=== PATIENT | female | born 1940 | race Caucasian/White ===

== ENCOUNTER 2017-04-22 19:32 | Inpatient (IN) | payer MEDICARE, OTHER ==
[~2017-04-22] VITALS: Ht 157.5 cm; Wt 66.0 kg
[2017-04-22] MEDS ORDERED: IV NORMAL SALINE 1000ML BAG 1,000 ML IV ONE (20:00)
[2017-04-22 20:16] LABS: BILIRUBIN,URINE NEGATIVE (NEG); GLUCOSE,URINE NEGATIVE (NEG); NITRITE,URINE NEGATIVE (NEG); PH,URINE 5.5; PROTEIN,URINE NEGATIVE (NEG-TRACE); UROBILINOGEN,URINE 0.2 mg/dL (0.2 mg/dL)
--- NOTE | 2017-04-22 20:18 | PHYS DOC ---
Past Medical History Past Medical History: Cancer, Diabetes-Type II, ND Past Surgical History: Cholecystectomy, Hysterectomy Alcohol Use: None Drug Use: None Adult General Chief Complaint Chief Complaint: ALTERED MENTAL STATUS HPI HPI Patient is a 76 year old female who presents with reported altered mental status. The patient was found in a neighborhood wandering and taking branches off of trees when bystanders reported the patient to EMS. On their arrival, they stated that the patient seem altered and was unable to tell them where she was coming from. On my evaluation, the patient is currently identifying the correct day, month, and year. Patient states that she does not have any complaints at this time but is unable to recall previous events prior to arrival. Patient does not have any available past medical history at this time. Patient states that she follows with a Dr. Mcneil in [place], [place]. The patient states that she lives at home with a friend. When asked if we would be able to contact this person, she states "I don't know." When asked why, the patient states that she does not know if the patient has a phone. Review of Systems Review of Systems Constitutional: Denies fever or chills [] Eyes: Denies change in visual acuity, redness, or eye pain [] HENT: Denies nasal congestion or sore throat [] Respiratory: Denies cough or shortness of breath [] Cardiovascular: Denies chest pain or edema [] GI: Denies abdominal pain, nausea, vomiting, bloody stools or diarrhea [] : Denies dysuria or hematuria [] Musculoskeletal: Denies back pain or joint pain [] Integument: Denies rash or skin lesions [] Neurologic: Denies headache, focal weakness or sensory changes [] Current Medications Current Medications Current Medications Medications (Trade) Dose Ordered Sig/[facility] Start Time Stop Time Status Last Admin Dose Admin Aspirin (Cathy Aspirin) 325 mg 1X ONCE 04/22/17 22:00 04/22/17 22:01 Ceftriaxone Sodium 50 ml @ 100 mls/hr 1X ONCE 04/22/17 21:00 04/22/17 21:29 DC 04/22/17 21:00 100 MLS/HR Sodium Chloride 1,000 ml @ 1,000 mls/hr 1X ONCE 04/22/17 20:00 04/22/17 20:59 DC 04/22/17 20:00 1,000 MLS/HR Allergies Allergies Allergies Coded Allergies Type Severity Reaction Last Updated Verified Unable to Assess 04/22/17 No Physical Exam Physical Exam Constitutional: Alert, disheveled appearance, afebrile, no acute distress. [] HENT: Normocephalic, atraumatic, bilateral external ears normal, oropharynx moist, no oral exudates, nose normal. [] Eyes: PERRLA, EOMI, conjunctiva normal, no discharge. [] Neck: Normal range of motion, no tenderness, supple, no stridor. [] Cardiovascular:Heart rate regular rhythm, no murmur [] Lungs & Thorax: Bilateral breath sounds clear to auscultation [] Abdomen: Bowel sounds normal, soft, no tenderness, no masses, no pulsatile masses. [] Skin: Warm, dry, no erythema, no rash. [] Back: No tenderness, no CVA tenderness. [] Extremities: No tenderness, no cyanosis, no clubbing, ROM intact, no edema. [] Neurologic: Alert and oriented X 3, normal motor function, normal sensory function, no focal deficits noted. [] Current Patient Data Vital Signs Vital Signs Date Time Temp Pulse Resp B/P (MAP) Pulse Ox O2 Delivery O2 Flow Rate FiO2 04/22/17 20:42 72 18 150/71 (97) 97 Room Air 04/22/17 19:35 97.7 97.7 Lab Values Laboratory Tests Test 04/22/17 19:55 04/22/17 20:14 04/22/17 20:40 Urine Collection Type Unknown Urine Color Yellow Urine Clarity Clear Urine pH 5.5 Urine Specific [place] <=1.005 Urine Protein Negative mg/dL (NEG-TRACE) Urine Glucose (UA) Negative mg/dL (NEG) Urine Ketones (Stick) Negative mg/dL (NEG) Urine Blood Negative (NEG) Urine Nitrite Negative (NEG) Urine Bilirubin Negative (NEG) Urine Urobilinogen Dipstick 0.2 mg/dL (0.2 mg/dL) Urine Leukocyte Esterase Moderate (NEG) Urine RBC 3-5 /HPF (0-2) Urine WBC Tntc /HPF (0-4) Urine Squamous Epithelial Cells Mod /LPF Urine Bacteria Few /HPF (0-FEW) Urine Opiates Screen Neg (NEG) Urine Methadone Screen Neg (NEG) Urine Barbiturates Neg (NEG) Urine Phencyclidine Screen Neg (NEG) Urine Amphetamine/Methamphetamine Neg (NEG) Urine Benzodiazepines Screen Neg (NEG) Urine Cocaine Screen Neg (NEG) Urine Cannabinoids Screen Neg (NEG) Urine Ethyl Alcohol Neg (NEG) White Blood Count 12.1 x10^3/uL (4.0-11.0) H Red Blood Count 5.39 x10^6/uL (3.50-5.40) Hemoglobin 15.2 g/dL (12.0-15.5) Hematocrit 46.6 % (36.0-47.0) Mean Corpuscular Volume 87 fL (79-100) Mean Corpuscular Hemoglobin 28 pg (25-35) Mean Corpuscular Hemoglobin Concent 33 g/dL (31-37) Red Cell Distribution Width 18.5 % (11.5-14.5) H Platelet Count 964 x10^3/uL (140-400) *H Neutrophils (%) (Auto) 77 % (31-73) H Lymphocytes (%) (Auto) 14 % (24-48) L Monocytes (%) (Auto) 6 % (0-9) Eosinophils (%) (Auto) 2 % (0-3) Basophils (%) (Auto) 1 % (0-3) Neutrophils # (Auto) 9.3 x10^3uL (1.8-7.7) H Lymphocytes # (Auto) 1.7 x10^3/uL (1.0-4.8) Monocytes # (Auto) 0.7 x10^3/uL (0.0-1.1) Eosinophils # (Auto) 0.2 x10^3/uL (0.0-0.7) Basophils # (Auto) 0.1 x10^3/uL (0.0-0.2) Platelet Estimate Increased (ADEQUATE) Anisocytosis Slight Sodium Level 128 mmol/L (136-145) L Potassium Level 3.6 mmol/L (3.5-5.1) Chloride Level 91 mmol/L (98-107) L Carbon Dioxide Level 25 mmol/L (21-32) Anion Gap 12 (6-14) Blood Urea Nitrogen 7 mg/dL (7-20) Creatinine 0.8 mg/dL (0.6-1.0) Estimated GFR (Cockcroft-Gault) 69.7 BUN/Creatinine Ratio 9 (6-20) Glucose Level 144 mg/dL (70-99) H Calcium Level 8.7 mg/dL (8.5-10.1) Magnesium Level 1.4 mg/dL (1.8-2.4) L Total Bilirubin 0.9 mg/dL (0.2-1.0) Aspartate Amino Transferase (AST) 21 U/L (15-37) Alanine Aminotransferase (ALT) 21 U/L (14-59) Alkaline Phosphatase 112 U/L (46-116) Creatine Kinase 127 U/L (26-192) Creatine Kinase MB (Mass) 3.0 ng/mL (0.0-3.6) Creatine Kinase MB Relative Index 2.4 % (0-4) Troponin I Quantitative 0.184 ng/mL (0.000-0.055) Total Protein 7.3 g/dL (6.4-8.2) Albumin 3.5 g/dL (3.4-5.0) Albumin/Globulin Ratio 0.9 (1.0-1.7) L Ethyl Alcohol Level < 10 mg/dL (0-10) Prothrombin Time 13.3 SEC (11.7-14.0) Prothrombin Time INR 1.1 (0.8-1.1) PTT 33 SEC (24-38) Laboratory Tests 04/22/17 20:14 Laboratory Tests 04/22/17 20:14 EKG EKG Interpreted by me: Heart rate 75, sinus rhythm, normal intervals, normal axis, no acute ST/T-wave abnormalities present [] Radiology/Procedures Radiology/Procedures [facility] [address] [place] [address] IMAGING REPORT Signed PATIENT: JAD BROOKS ACCOUNT: [id number] : 1940 LOCATION: ER AGE: 76 SEX: F EXAM STATUS: REG ER ORD. PHYSICIAN: ANGI RAY MD REASON: altered mental status PROCEDURE: CT HEAD WO CONTRAST CT HEAD WO CONTRAST History: Altered mental status Comparison: None. Technique: Noncontrast [address] images were acquired from the skull base to the vertex. Exposure: One or more of the following individualized dose reduction techniques were utilized for this examination: 1. Automated exposure control 2. Adjustment of the mA and/or kV according to patient size 3. Use of iterative reconstruction technique. Findings: No acute extra-axial or parenchymal hemorrhage is identified. There is no significant intra-axial mass effect, midline shift, or extra-axial fluid collection. The bo-white differentiation of the major vascular territories is preserved. There is mild ill-defined low density of the supratentorial white matter. The ventricles, sulci, and cisterns are within normal limits in size and configuration. The mastoid air cells and the visualized paranasal sinuses are aerated. No acute calvarial abnormality is identified. There is atherosclerotic calcification of the carotid siphons bilaterally. Impression: 1. No acute intracranial abnormality is identified. If there is concern for evolving or acute ischemia, followup CT or MRI could be beneficial. Mild ill-defined low density of the supratentorial matter is nonspecific, may be due to chronic microvascular ischemic disease. Electronically signed by: Janice Kirby MD (04/22/2017 9:33 PM) DICTATED and SIGNED BY: JANICE KIRBY MD DATE: 04/22/172131 CC: ANGI RAY MD; UNKNOWN PCP NAME ~ One view AP chest x-ray interpreted by me: No infiltrate, no effusions, normal cardiac silhouette [] Course & Med Decision Making Course & Med Decision Making Pertinent Labs and Imaging studies reviewed. (See chart for details) Patient found to have evidence of urinary tract infection and was started on IV Rocephin. Due to patient's cell phone, we were able to get in contact with patient's family. The patient's son came to the emergency department. He explained that the patient has history of dementia and recently moved in with him and his over the weekend. He stated that he had not been able tenderness the patient to neighbors and thus they did not recognize the patient and called EMS. The patient was also noted to have evidence of an elevated troponin level during her workup. The significance of this is unclear at this time, however patient will need to be admitted for repeat troponin levels to ensure no evidence of NSTEMI. Patient be continued on IV Rocephin for treatment of urinary tract infection. I spoke with Dr. Moore who accepted care patient in hospital. Dragon Disclaimer Dragon Disclaimer This electronic medical record was generated, in whole or in part, using a voice recognition dictation system. Departure Departure Impression: Primary Impression: UTI (urinary tract infection) Additional Impressions: Altered mental state Elevated troponin Hyponatremia Dementia Thrombocytosis Disposition: ADMITTED INPATIENT Admitting Physician: Yazmin Moore Condition: GUARDED Referrals: UNKNOWN PCP NAME (PCP) Problem Qualifiers Primary Impression: UTI (urinary tract infection) Urinary tract infection type: site unspecified Hematuria presence: without hematuria Qualified Codes: N39.0 - Urinary tract infection, site not specified Additional Impressions: Altered mental state Altered mental status type: unspecified Qualified Codes: R41.82 - Altered mental status, unspecified Dementia Dementia type: unspecified type Dementia behavioral disturbance: with behavioral disturbance Qualified Codes: F03.91 - Unspecified dementia with behavioral disturbance ANGI RAY MD April 22, 2017 20:18
[2017-04-22 20:23] LABS: BARBITURATES NEG (NEG); BENZODIAZEPINES NEG (NEG); CANNABINOIDS NEG (NEG); COCAINE NEG (NEG); METHADONE NEG (NEG); OPIATES NEG (NEG); PHENCYCLIDINE NEG (NEG)
[2017-04-22 20:25] LABS: WBC,URINE TNTC /HPF (0-4)
[2017-04-22 20:26] LABS: BACTERIA,URINE FEW /HPF (0-FEW); SQUAMOUS EPITHELIAL CELL,UR MOD /LPF
[2017-04-22 20:29] LABS: BASO # 0.1 x10^3/uL (0.0-0.2); BASO % 1 % (0-3); EOS % 2 % (0-3); HEMATOCRIT 46.6 % (36.0-47.0); HEMOGLOBIN 15.2 g/dL (12.0-15.5); LYMPH # 1.7 x10^3/uL (1.0-4.8); LYMPH % 14 % (24-48); MEAN CORPUSCULAR HEMOGLOBIN 28 pg (25-35); MEAN CORPUSCULAR HGB CONC 33 g/dL (31-37); MEAN CORPUSCULAR VOLUME 87 fL (79-100); MONO % 6 % (0-9); NEUT % 77 % (31-73); RED BLOOD COUNT 5.39 x10^6/uL (3.50-5.40); RED CELL DISTRIBUTION WIDTH 18.5 % (11.5-14.5); WHITE BLOOD COUNT 12.1 x10^3/uL (4.0-11.0)
[2017-04-22 20:35] LABS: PLATELET COUNT 964 x10^3/uL (140-400)
[2017-04-22 20:44] LABS: ANISOCYTOSIS SLIGHT; PLT ESTIMATE INCREASED (ADEQUATE)
[2017-04-22 20:45] LABS: CALCIUM 8.7 mg/dL (8.5-10.1); CREATININE 0.8 mg/dL (0.6-1.0); GFR 69.7; POTASSIUM 3.6 mmol/L (3.5-5.1)
[2017-04-22 20:51] LABS: ALBUMIN 3.5 g/dL (3.4-5.0); ALBUMIN/GLOBULIN RATIO 0.9 (1.0-1.7); MAGNESIUM 1.4 mg/dL (1.8-2.4); TOTAL BILIRUBIN 0.9 mg/dL (0.2-1.0); TOTAL PROTEIN 7.3 g/dL (6.4-8.2)
[2017-04-22 20:57] LABS: INR 1.1 (0.8-1.1); PROTHROMBIN TIME PATIENT 13.3 SEC (11.7-14.0)
--- NOTE | 2017-04-22 21:37 | RAD ---
CT HEAD WO CONTRAST History: Altered mental status Comparison: None. Technique: Noncontrast [address] images were acquired from the skull base to the vertex. Exposure: One or more of the following individualized dose reduction techniques were utilized for this examination: 1. Automated exposure control 2. Adjustment of the mA and/or kV according to patient size 3. Use of iterative reconstruction technique. Findings: No acute extra-axial or parenchymal hemorrhage is identified. There is no significant intra-axial mass effect, midline shift, or extra-axial fluid collection. The bo-white differentiation of the major vascular territories is preserved. There is mild ill-defined low density of the supratentorial white matter. The ventricles, sulci, and cisterns are within normal limits in size and configuration. The mastoid air cells and the visualized paranasal sinuses are aerated. No acute calvarial abnormality is identified. There is atherosclerotic calcification of the carotid siphons bilaterally. Impression: 1. No acute intracranial abnormality is identified. If there is concern for evolving or acute ischemia, followup CT or MRI could be beneficial. Mild ill-defined low density of the supratentorial matter is nonspecific, may be due to chronic microvascular ischemic disease. Electronically signed by: Adiel Kirby MD (04/22/2017 9:33 PM)
[2017-04-22] MEDS ORDERED: ACETAMINOPHEN 325 MG TABLET. PO PRN (22:00)
[2017-04-22] MEDS ORDERED: ONDANSETRON PF 4 MG/2 ML VIAL. IV PRN (22:00)
[2017-04-22] MEDS ORDERED: ASPIRIN 325 MG TABLET PO ONE (22:00)
[2017-04-22] MEDS: IV NORMAL SALINE 1000ML BAG 1,000 ML IV SCH (22:10)
--- NOTE | 2017-04-22 22:55 | ACF ---
Admission Forms Criteria URINARY COMPLICATIONS Clinical Indications for Inpatient Care (Place 'X' for any and all applicable criteria): Ongoing inpatient care may be indicated for urinary complications with ANY ONE of the following: [X ]I. Urinary tract infection requiring inpatient care as indicated by ANY ONE of the following(8)(19)(20): [ ]a) Severe symptoms (eg, high fever, severe pain) [ ]b) Vomiting or dehydration requiring ongoing inpatient care [X ]c) IV antibiotic needs that cannot be managed at lower level of care [ ]d) Hemodynamic instability [ ]e) Obstruction of collecting system by stone or tumor [ ]II. Urinary retention requiring drainage or surgery (3)(4)(5)(17)(18) [ ]III. Renal failure (Use Renal Failure Criteria for further information.) [ ]IV. Oliguria(30) [ ]V. Post obstructive diuresis requiring close monitoring of urine output and intravenous compensation for excessive fluid losses(33) Extended stay beyond goal length of stay for primary condition may be needed until ALL of the following are present(3)(4)(5)(8): [ ]a) Renal function (creatinine) at baseline, or daily decreases in creatinine consistent with renal function return [ ]b) Voiding adequately or with urinary catheter or percutaneous suprapubic tube and management regimen in place that is performable at lower level of care. [ ]c) Urine output adequate [ ]d) Fever absent or resolving [ ]e) Infection absent or treatable at next level of care The original [email or web address] content created by [email or web address] has been revised. The portions of the content which have been revised are identified through the use of italic text or in bold, and [facility] has neither reviewed nor approved the modified material. All other unmodified content is copyright to[facility] Please see references footnoted in the original to[facility] edition 2016 Admission Criteria Met?: Yes FREDA CALLAWAY April 22, 2017 22:55
[2017-04-22 23:10] VITALS: BP 139/86
[2017-04-23] MEDS ORDERED: UNABLE MC (00:09)
[2017-04-23 02:10] VITALS: BP 127/78
[2017-04-23 05:02] LABS: BASO # 0.2 x10^3/uL (0.0-0.2); BASO % 1 % (0-3); EOS % 2 % (0-3); HEMATOCRIT 45.3 % (36.0-47.0); HEMOGLOBIN 14.7 g/dL (12.0-15.5); LYMPH # 1.9 x10^3/uL (1.0-4.8); LYMPH % 15 % (24-48); MEAN CORPUSCULAR HEMOGLOBIN 28 pg (25-35); MEAN CORPUSCULAR HGB CONC 33 g/dL (31-37); MEAN CORPUSCULAR VOLUME 86 fL (79-100); MONO % 8 % (0-9); NEUT % 74 % (31-73); RED BLOOD COUNT 5.29 x10^6/uL (3.50-5.40); RED CELL DISTRIBUTION WIDTH 18.8 % (11.5-14.5); WHITE BLOOD COUNT 12.1 x10^3/uL (4.0-11.0)
[2017-04-23 05:15] LABS: CALCIUM 8.6 mg/dL (8.5-10.1); CREATININE 0.7 mg/dL (0.6-1.0); GFR 81.4; POTASSIUM 4.9 mmol/L (3.5-5.1)
[2017-04-23 05:34] LABS: PLATELET COUNT 1035 x10^3/uL (140-400)
--- NOTE | 2017-04-23 06:18 | EKG ---
[facility] [address] [place] [address] Test Date: 2017-04-22 Test Time: 20:08:48 Pat Name: JAD BROOKS Department: Room: 252 Gender: F [employer]: : 1940 Requested By: ANGI RAY Order Number: [id number] Reading MD: Dolores Adam Measurements Intervals [place] Rate: 75 P: 54 SC: 142 QRS: 24 QRSD: 102 T: -35 QT: 398 QTc: 447 Interpretive Statements SINUS RHYTHM NORMAL EKG RI6.01 Unconfirmed report No previous ECG available for comparison Electronically Signed On 04-27-2017 14:22:12 CDT by Dolores Adam
--- NOTE | 2017-04-23 07:52 | RAD ---
Portable chest, 04/22/2017: History: Altered mental status The heart size is normal. There is calcific plaquing of the aorta. The pulmonary vascularity is normal. A calcified granuloma is present in the right base. No acute infiltrates are seen. There is no evidence of pleural fluid. Moderate spurring is present in the spine. IMPRESSION: No acute cardiopulmonary abnormality is detected.
[2017-04-23] MEDS: IV NORMAL SALINE 1000ML BAG 1,000 ML IV SCH ×2 (08:00→18:00)
[2017-04-23] MEDS ORDERED: HYDR500C16 PO ×2 (08:11→08:16)
[2017-04-23] MEDS ORDERED: METF500T9 PO (08:17)
[2017-04-23] MEDS ORDERED: BISO1TAB4 PO (08:18)
[2017-04-23] MEDS ORDERED: GLIP5TAB10 PO (08:19)
[2017-04-23] MEDS ORDERED: GLIP10TA13 PO (08:19)
[2017-04-23] MEDS ORDERED: CLOP75TA PO (08:19)
[2017-04-23] MEDS ORDERED: LEVO100T5 PO (08:20)
[2017-04-23] MEDS ORDERED: DOCU100C5 PO (08:20)
--- NOTE | 2017-04-23 09:05 | PDOC2 ---
MAISHA LEYVA [employer] JUDGE 04/23/17 0905: CARDIAC CONSULT DATE OF CONSULT Date of Consult DATE: 04/23/17 TIME: 08:46 REASON FOR CONSULT Reason for Consult: elevated troponin REFERRING PHYSICIAN Referring Physician: Sandra SOURCE Source: Caregiver (son), Chart review, Patient HISTORY OF PRESENT ILLNESS HISTORY OF PRESENT ILLNESS This is a pleasant 76 yo female admitted for noted confusion. She is originally from [place], [place] and recently moved to her son's ([place]) Friday due to her dementia. Last night her son went to work and she was found by the bystanders in their neighbors yard wandering and confused. There was no complains of chest pain, SOA, palpitation and nausea at that time. Pt denies and son has not noticed any symptom changes except that she does have occasional confusion. I had a long discussion with her son and reported to me that she has CAD and stent placed >10 yrs and she has not seen a mirror painter for a while. He has not noted her with any cardiac symptoms but was worried about her speech with noted stuttering. No unilateral weakness, facial droop, visual or auditory disturbances. Her appetite has been poor lately but her hydration is adequate accdg to son. It is unclear how compliant she is with her medications but the son is monitoring this. Accdg to son she has been complaining of being cold more but no respiratory symptoms or noted fever. She was recently diagnosed with Alzheimers about a month ago but was not started on any aricept or namenda. She recently saw her PCP at [place], Dr. Mnceil. Presently she is AOx3, slightly restless and cooperative. No recent falls or injury, no VTE. PAST MEDICAL HISTORY Cardiovascular: CAD, HTN, GA, Hyperlipidemia Pulmonary: No pertinent hx CENTRAL NERVOUS SYSTEM: Dementia (Alzheimers) GI: Constipation, GERD Heme/Onc: Cancer (colon unknown for any surgery or chemo) Hepatobiliary: Other (thrombocytosis) Psych: Anxiety, Depression Musculoskeletal: low back pain (lumbar stenosis), Osteoarthritis Rheumatologic: No pertinent hx Infectious disease: No pertinent hx ENT: No pertinent hx Renal/: Urinary Incontinence Endocrine: Diabetes (2), Hypothyroidism Dermatology: No pertinent hx PAST SURGICAL HISTORY Past Surgical History: Cholecystectomy, Hysterectomy, Other (right leg surgery ; PCI/stent >10 yrs ago) FAMILY HISTORY Family History: Family History Unknown SOCIAL HISTORY Smoke: No ALCOHOL: none Drugs: None Lives: with Family CURRENT MEDICATIONS CURRENT MEDICATIONS Current Medications Medications (Trade) Dose Ordered Sig/Nuria Route PRN Reason Start Time Stop Time Status Last Admin Dose Admin Sodium Chloride 1,000 ml @ 1,000 mls/hr 1X ONCE IV 04/22/17 20:00 04/22/17 20:59 DC 04/22/17 20:00 Ceftriaxone Sodium 50 ml @ 100 mls/hr 1X ONCE IV 04/22/17 21:00 04/22/17 21:29 DC 04/22/17 21:00 Aspirin (Cathy Aspirin) 325 mg 1X ONCE PO 04/22/17 22:00 04/22/17 22:01 DC 04/22/17 22:10 Sodium Chloride 1,000 ml @ 100 mls/hr Q10H IV 04/22/17 22:00 04/23/17 21:59 04/22/17 22:10 ALLERGIES ALLERGIES: Coded Allergies: Penicillins (Verified Allergy, Unknown, 04/23/17) ROS Review of System 14 point ROS evaluated with pertinent positives noted per HPI PHYSICAL EXAM General: Alert, Oriented X3, Cooperative, No acute distress HEENT: Atraumatic, Mucous membr. moist/pink Lungs: Clear to auscultation, Normal air movement Heart: Regular rate (SR), Normal S1, Normal S2, Other (5/6 systolic murmur to MECHELLE border) Neuro: Normal speech, Sensation intact Psych/Mental Status: Mental status NL, Other (slightly restless) MUSCULOSKELETAL: Osteoarthritic changes both hands VITALS VITALS Vital Signs Date Time Temp Pulse Resp B/P (MAP) Pulse Ox O2 Delivery O2 Flow Rate FiO2 04/23/17 02:10 98.0 86 19 127/78 (94) 95 Room Air 98.0 LABS Lab: Laboratory Tests Test 04/22/17 19:55 04/22/17 20:14 04/22/17 20:40 04/23/17 03:50 Urine Collection Type Unknown Urine Color Yellow Urine Clarity Clear Urine pH 5.5 Urine Specific [place] <=1.005 Urine Protein Negative mg/dL (NEG-TRACE) Urine Glucose (UA) Negative mg/dL (NEG) Urine Ketones (Stick) Negative mg/dL (NEG) Urine Blood Negative (NEG) Urine Nitrite Negative (NEG) Urine Bilirubin Negative (NEG) Urine Urobilinogen Dipstick 0.2 mg/dL (0.2 mg/dL) Urine Leukocyte Esterase Moderate (NEG) Urine RBC 3-5 /HPF (0-2) Urine WBC Tntc /HPF (0-4) Urine Squamous Epithelial Cells Mod /LPF Urine Bacteria Few /HPF (0-FEW) Urine Opiates Screen Neg (NEG) Urine Methadone Screen Neg (NEG) Urine Barbiturates Neg (NEG) Urine Phencyclidine Screen Neg (NEG) Urine Amphetamine/Methamphetamine Neg (NEG) Urine Benzodiazepines Screen Neg (NEG) Urine Cocaine Screen Neg (NEG) Urine Cannabinoids Screen Neg (NEG) Urine Ethyl Alcohol Neg (NEG) White Blood Count 12.1 x10^3/uL (4.0-11.0) Red Blood Count 5.39 x10^6/uL (3.50-5.40) Hemoglobin 15.2 g/dL (12.0-15.5) Hematocrit 46.6 % (36.0-47.0) Mean Corpuscular Volume 87 fL (79-100) Mean Corpuscular Hemoglobin 28 pg (25-35) Mean Corpuscular Hemoglobin Concent 33 g/dL (31-37) Red Cell Distribution Width 18.5 % (11.5-14.5) Platelet Count 964 x10^3/uL (140-400) Neutrophils (%) (Auto) 77 % (31-73) Lymphocytes (%) (Auto) 14 % (24-48) Monocytes (%) (Auto) 6 % (0-9) Eosinophils (%) (Auto) 2 % (0-3) Basophils (%) (Auto) 1 % (0-3) Neutrophils # (Auto) 9.3 x10^3uL (1.8-7.7) Lymphocytes # (Auto) 1.7 x10^3/uL (1.0-4.8) Monocytes # (Auto) 0.7 x10^3/uL (0.0-1.1) Eosinophils # (Auto) 0.2 x10^3/uL (0.0-0.7) Basophils # (Auto) 0.1 x10^3/uL (0.0-0.2) Platelet Estimate Increased (ADEQUATE) Anisocytosis Slight Sodium Level 128 mmol/L (136-145) Potassium Level 3.6 mmol/L (3.5-5.1) Chloride Level 91 mmol/L (98-107) Carbon Dioxide Level 25 mmol/L (21-32) Anion Gap 12 (6-14) Blood Urea Nitrogen 7 mg/dL (7-20) Creatinine 0.8 mg/dL (0.6-1.0) Estimated GFR (Cockcroft-Gault) 69.7 BUN/Creatinine Ratio 9 (6-20) Glucose Level 144 mg/dL (70-99) Calcium Level 8.7 mg/dL (8.5-10.1) Magnesium Level 1.4 mg/dL (1.8-2.4) Total Bilirubin 0.9 mg/dL (0.2-1.0) Aspartate Amino Transf (AST/SGOT) 21 U/L (15-37) Alanine Aminotransferase (ALT/SGPT) 21 U/L (14-59) Alkaline Phosphatase 112 U/L (46-116) Creatine Kinase 127 U/L (26-192) Creatine Kinase MB (Mass) 3.0 ng/mL (0.0-3.6) Creatine Kinase MB Relative Index 2.4 % (0-4) Troponin I Quantitative 0.184 ng/mL (0.000-0.055) 1.263 ng/mL (0.000-0.055) Total Protein 7.3 g/dL (6.4-8.2) Albumin 3.5 g/dL (3.4-5.0) Albumin/Globulin Ratio 0.9 (1.0-1.7) Ethyl Alcohol Level < 10 mg/dL (0-10) Prothrombin Time 13.3 SEC (11.7-14.0) Prothromb Time International Ratio 1.1 (0.8-1.1) Activated Partial Thromboplast Time 33 SEC (24-38) Test 04/23/17 03:55 White Blood Count 12.1 x10^3/uL (4.0-11.0) Red Blood Count 5.29 x10^6/uL (3.50-5.40) Hemoglobin 14.7 g/dL (12.0-15.5) Hematocrit 45.3 % (36.0-47.0) Mean Corpuscular Volume 86 fL (79-100) Mean Corpuscular Hemoglobin 28 pg (25-35) Mean Corpuscular Hemoglobin Concent 33 g/dL (31-37) Red Cell Distribution Width 18.8 % (11.5-14.5) Platelet Count 1035 x10^3/uL (140-400) Neutrophils (%) (Auto) 74 % (31-73) Lymphocytes (%) (Auto) 15 % (24-48) Monocytes (%) (Auto) 8 % (0-9) Eosinophils (%) (Auto) 2 % (0-3) Basophils (%) (Auto) 1 % (0-3) Neutrophils # (Auto) 8.9 x10^3uL (1.8-7.7) Lymphocytes # (Auto) 1.9 x10^3/uL (1.0-4.8) Monocytes # (Auto) 0.9 x10^3/uL (0.0-1.1) Eosinophils # (Auto) 0.3 x10^3/uL (0.0-0.7) Basophils # (Auto) 0.2 x10^3/uL (0.0-0.2) Sodium Level 134 mmol/L (136-145) Potassium Level 4.9 mmol/L (3.5-5.1) Chloride Level 97 mmol/L (98-107) Carbon Dioxide Level 26 mmol/L (21-32) Anion Gap 11 (6-14) Blood Urea Nitrogen 9 mg/dL (7-20) Creatinine 0.7 mg/dL (0.6-1.0) Estimated GFR (Cockcroft-Gault) 81.4 Glucose Level 124 mg/dL (70-99) Calcium Level 8.6 mg/dL (8.5-10.1) ASSESSMENT/PLAN ASSESSMENT/PLAN 1. NSTEMI: Troponin at 1.263. EKG SR with anterolateral changes with likely old inferior GA, no prior EKG for comparison. CP free and no SOA. 2. Metabolic encephalopathy with underlying new Alzheimers dementia: likely exacerbated below. Presently AOx3 and cooperative 3. Suspected 4. Hyponatremia: possibly from poor nutrition. was noted by her PCP on 04/07/2017 5. UTI: per PCP 6. Thrombocytosis: PLT 1035 was noted by her PCP to be essential on 04/07/2017 and on hydroxyurea. defer to PCP 7. CAD: PCI/stent >10 yrs ago at [facility]. On home plavix 8. Hypomagnesemia 9. HTN: Controlled, on home bisoprolol/HCTZ 10. DM2/HLP: on glipizide/metformin and lipitor 11. Hypothyroidism: on replacement 12. Hx of colon CA: unknown type and treatment Recommendations 1. Significant discussion with son regarding options between conservative vs MPI vs invasive procedures At this time her son RYANN could not decide. Will continue to trend troponin, obtain TTE and repeat EKG After results obtained, will present to son and pt to help with their decision making In the mean time will start on heparin drip 2. TTE, repeat EKG 3. TSH, Mg, lipids. 4. Obtain old records 5. Continue with secondary prevention measures. 6. Hold metformin for now 7. Continue with IVF Problems: ALAN QUINTANA MD 04/23/17 1546: CARDIAC CONSULT ALLERGIES ALLERGIES: Coded Allergies: Penicillins (Verified Allergy, Unknown, 04/23/17) ASSESSMENT/PLAN ASSESSMENT/PLAN Patient seen and examined. Agree with PRIVATE TUTOR's assessment and plan. Non-STEMI probably type II 2-D echo showed normal left ventricle systolic function without any regional wall motion abnormalities and probable moderate aortic stenosis Patient was recommended Lexiscan nuclear stress test for further evaluation but she is currently declining it. Continue workup and treatment for hyponatremia and metabolic encephalopathy per primary team. Thank you for your consultation. Problems: MAISHA LEYVA APRN April 23, 2017 09:05 ALAN QUINTANA MD April 23, 2017 15:46
[2017-04-23 09:15] LABS: MAGNESIUM 1.5 mg/dL (1.8-2.4)
[2017-04-23 09:16] LABS: CHOLESTEROL/HDL RATIO 2.1
[2017-04-23] MEDS ORDERED: MAGNESIUM SULFATE 2GM 50 ML IV ONE (09:30)
--- NOTE | 2017-04-23 10:12 | PDOC1 ---
History and Physical Past Medical History Cardiovascular: CAD, HTN, VA, Hyperlipidemia CENTRAL NERVOUS SYSTEM: Dementia (Alzheimers) Hepatobiliary: No pertinent hx Renal/: UTI, Urinary Incontinence Endocrine: Diabetes (2), Hypothyroidism Past Surgical History Past Surgical History: Cholecystectomy, Hysterectomy Current Problem List Problem List Problems Medical Problems: (1) Dementia Status: Acute (2) Hyponatremia Status: Acute (3) Thrombocytosis Status: Acute Current Medications Current Medications Current Medications Medications (Trade) Dose Ordered Sig/Nuria Start Time Stop Time Status Last Admin Dose Admin Acetaminophen (Tylenol) 650 mg PRN Q4HRS PRN 04/22/17 22:00 04/23/17 21:59 Aspirin (Cathy Aspirin) 325 mg 1X ONCE 04/22/17 22:00 04/22/17 22:01 DC 04/22/17 22:10 325 MG Ceftriaxone Sodium 1 gm/ Sodium Chloride 50 ml @ 100 mls/hr Q24H 04/23/17 22:00 Ceftriaxone Sodium 50 ml @ 100 mls/hr 1X ONCE 04/22/17 21:00 04/22/17 21:29 DC 04/22/17 21:00 100 MLS/HR Heparin Sodium (Porcine) (Heparin Sodium) 1,700 unit PRN Q6HRS PRN 04/23/17 10:15 UNV Heparin Sodium/ Dextrose 500 ml @ 0 mls/hr CONT PRN 04/23/17 10:15 UNV Magnesium Sulfate/ Dextrose 50 ml @ 25 mls/hr 1X ONCE 04/23/17 09:30 04/23/17 11:29 Ondansetron HCl (Zofran) 4 mg PRN Q8HRS PRN 04/22/17 22:00 04/23/17 21:59 Sodium Chloride 1,000 ml @ 100 mls/hr Q10H 04/22/17 22:00 04/23/17 21:59 04/22/17 22:10 100 MLS/HR Allergies Allergies Allergies Coded Allergies Type Severity Reaction Last Updated Verified Penicillins Allergy Unknown 04/23/17 Yes ROS Review of System not able to obtain due to her mental status. Physical Exam Physical Exam GEN.: No apparent distress. Alert and oriented. to self not to place. HEENT: Head is normocephalic, atraumatic NECK: Supple. no JVD LUNGS: Clear to auscultation. HEART: RRR, S1, S2 present. Peripheral pulses intact ABDOMEN: Soft, nontender. Positive bowel sounds. EXTREMITIES: Without any cyanosis. NEUROLOGIC: Alert, PSYCHIATRIC: episodic agitation, SKIN: No ulcerations Vitals Vitals Vital Signs Date Time Temp Pulse Resp B/P (MAP) Pulse Ox O2 Delivery O2 Flow Rate FiO2 04/23/17 08:49 Room Air 04/23/17 02:10 98.0 86 19 127/78 (94) 95 98.0 Labs Labs Laboratory Tests Test 04/22/17 19:55 04/22/17 20:14 04/22/17 20:40 04/23/17 03:50 Urine Collection Type Unknown Urine Color Yellow Urine Clarity Clear Urine pH 5.5 Urine Specific [place] <=1.005 Urine Protein Negative mg/dL (NEG-TRACE) Urine Glucose (UA) Negative mg/dL (NEG) Urine Ketones (Stick) Negative mg/dL (NEG) Urine Blood Negative (NEG) Urine Nitrite Negative (NEG) Urine Bilirubin Negative (NEG) Urine Urobilinogen Dipstick 0.2 mg/dL (0.2 mg/dL) Urine Leukocyte Esterase Moderate (NEG) Urine RBC 3-5 /HPF (0-2) Urine WBC Tntc /HPF (0-4) Urine Squamous Epithelial Cells Mod /LPF Urine Bacteria Few /HPF (0-FEW) Urine Opiates Screen Neg (NEG) Urine Methadone Screen Neg (NEG) Urine Barbiturates Neg (NEG) Urine Phencyclidine Screen Neg (NEG) Urine Amphetamine/Methamphetamine Neg (NEG) Urine Benzodiazepines Screen Neg (NEG) Urine Cocaine Screen Neg (NEG) Urine Cannabinoids Screen Neg (NEG) Urine Ethyl Alcohol Neg (NEG) White Blood Count 12.1 x10^3/uL (4.0-11.0) Red Blood Count 5.39 x10^6/uL (3.50-5.40) Hemoglobin 15.2 g/dL (12.0-15.5) Hematocrit 46.6 % (36.0-47.0) Mean Corpuscular Volume 87 fL (79-100) Mean Corpuscular Hemoglobin 28 pg (25-35) Mean Corpuscular Hemoglobin Concent 33 g/dL (31-37) Red Cell Distribution Width 18.5 % (11.5-14.5) Platelet Count 964 x10^3/uL (140-400) Neutrophils (%) (Auto) 77 % (31-73) Lymphocytes (%) (Auto) 14 % (24-48) Monocytes (%) (Auto) 6 % (0-9) Eosinophils (%) (Auto) 2 % (0-3) Basophils (%) (Auto) 1 % (0-3) Neutrophils # (Auto) 9.3 x10^3uL (1.8-7.7) Lymphocytes # (Auto) 1.7 x10^3/uL (1.0-4.8) Monocytes # (Auto) 0.7 x10^3/uL (0.0-1.1) Eosinophils # (Auto) 0.2 x10^3/uL (0.0-0.7) Basophils # (Auto) 0.1 x10^3/uL (0.0-0.2) Platelet Estimate Increased (ADEQUATE) Anisocytosis Slight Sodium Level 128 mmol/L (136-145) Potassium Level 3.6 mmol/L (3.5-5.1) Chloride Level 91 mmol/L (98-107) Carbon Dioxide Level 25 mmol/L (21-32) Anion Gap 12 (6-14) Blood Urea Nitrogen 7 mg/dL (7-20) Creatinine 0.8 mg/dL (0.6-1.0) Estimated GFR (Cockcroft-Gault) 69.7 BUN/Creatinine Ratio 9 (6-20) Glucose Level 144 mg/dL (70-99) Calcium Level 8.7 mg/dL (8.5-10.1) Magnesium Level 1.4 mg/dL (1.8-2.4) Total Bilirubin 0.9 mg/dL (0.2-1.0) Aspartate Amino Transf (AST/SGOT) 21 U/L (15-37) Alanine Aminotransferase (ALT/SGPT) 21 U/L (14-59) Alkaline Phosphatase 112 U/L (46-116) Creatine Kinase 127 U/L (26-192) Creatine Kinase MB (Mass) 3.0 ng/mL (0.0-3.6) Creatine Kinase MB Relative Index 2.4 % (0-4) Troponin I Quantitative 0.184 ng/mL (0.000-0.055) 1.263 ng/mL (0.000-0.055) Total Protein 7.3 g/dL (6.4-8.2) Albumin 3.5 g/dL (3.4-5.0) Albumin/Globulin Ratio 0.9 (1.0-1.7) Ethyl Alcohol Level < 10 mg/dL (0-10) Prothrombin Time 13.3 SEC (11.7-14.0) Prothromb Time International Ratio 1.1 (0.8-1.1) Activated Partial Thromboplast Time 33 SEC (24-38) Test 04/23/17 03:55 White Blood Count 12.1 x10^3/uL (4.0-11.0) Red Blood Count 5.29 x10^6/uL (3.50-5.40) Hemoglobin 14.7 g/dL (12.0-15.5) Hematocrit 45.3 % (36.0-47.0) Mean Corpuscular Volume 86 fL (79-100) Mean Corpuscular Hemoglobin 28 pg (25-35) Mean Corpuscular Hemoglobin Concent 33 g/dL (31-37) Red Cell Distribution Width 18.8 % (11.5-14.5) Platelet Count 1035 x10^3/uL (140-400) Neutrophils (%) (Auto) 74 % (31-73) Lymphocytes (%) (Auto) 15 % (24-48) Monocytes (%) (Auto) 8 % (0-9) Eosinophils (%) (Auto) 2 % (0-3) Basophils (%) (Auto) 1 % (0-3) Neutrophils # (Auto) 8.9 x10^3uL (1.8-7.7) Lymphocytes # (Auto) 1.9 x10^3/uL (1.0-4.8) Monocytes # (Auto) 0.9 x10^3/uL (0.0-1.1) Eosinophils # (Auto) 0.3 x10^3/uL (0.0-0.7) Basophils # (Auto) 0.2 x10^3/uL (0.0-0.2) Sodium Level 134 mmol/L (136-145) Potassium Level 4.9 mmol/L (3.5-5.1) Chloride Level 97 mmol/L (98-107) Carbon Dioxide Level 26 mmol/L (21-32) Anion Gap 11 (6-14) Blood Urea Nitrogen 9 mg/dL (7-20) Creatinine 0.7 mg/dL (0.6-1.0) Estimated GFR (Cockcroft-Gault) 81.4 Glucose Level 124 mg/dL (70-99) Calcium Level 8.6 mg/dL (8.5-10.1) Magnesium Level 1.5 mg/dL (1.8-2.4) Triglycerides Level 73 mg/dL (0-150) Cholesterol Level 104 mg/dL (0-200) LDL Cholesterol, Calculated 39 mg/dL (0-100) VLDL Cholesterol, Calculated 15 mg/dL (0-40) Non-HDL Cholesterol Calculated 54 mg/dL (0-129) HDL Cholesterol 50 mg/dL (40-60) Cholesterol/HDL Ratio 2.1 Thyroid Stimulating Hormone (TSH) 1.144 uIU/mL (0.358-3.74) Laboratory Tests Test 04/22/17 19:55 04/22/17 20:14 04/22/17 20:40 04/23/17 03:50 Urine Collection Type Unknown Urine Color Yellow Urine Clarity Clear Urine pH 5.5 Urine Specific [place] <=1.005 Urine Protein Negative mg/dL (NEG-TRACE) Urine Glucose (UA) Negative mg/dL (NEG) Urine Ketones (Stick) Negative mg/dL (NEG) Urine Blood Negative (NEG) Urine Nitrite Negative (NEG) Urine Bilirubin Negative (NEG) Urine Urobilinogen Dipstick 0.2 mg/dL (0.2 mg/dL) Urine Leukocyte Esterase Moderate (NEG) Urine RBC 3-5 /HPF (0-2) Urine WBC Tntc /HPF (0-4) Urine Squamous Epithelial Cells Mod /LPF Urine Bacteria Few /HPF (0-FEW) Urine Opiates Screen Neg (NEG) Urine Methadone Screen Neg (NEG) Urine Barbiturates Neg (NEG) Urine Phencyclidine Screen Neg (NEG) Urine Amphetamine/Methamphetamine Neg (NEG) Urine Benzodiazepines Screen Neg (NEG) Urine Cocaine Screen Neg (NEG) Urine Cannabinoids Screen Neg (NEG) Urine Ethyl Alcohol Neg (NEG) White Blood Count 12.1 x10^3/uL (4.0-11.0) Red Blood Count 5.39 x10^6/uL (3.50-5.40) Hemoglobin 15.2 g/dL (12.0-15.5) Hematocrit 46.6 % (36.0-47.0) Mean Corpuscular Volume 87 fL (79-100) Mean Corpuscular Hemoglobin 28 pg (25-35) Mean Corpuscular Hemoglobin Concent 33 g/dL (31-37) Red Cell Distribution Width 18.5 % (11.5-14.5) Platelet Count 964 x10^3/uL (140-400) Neutrophils (%) (Auto) 77 % (31-73) Lymphocytes (%) (Auto) 14 % (24-48) Monocytes (%) (Auto) 6 % (0-9) Eosinophils (%) (Auto) 2 % (0-3) Basophils (%) (Auto) 1 % (0-3) Neutrophils # (Auto) 9.3 x10^3uL (1.8-7.7) Lymphocytes # (Auto) 1.7 x10^3/uL (1.0-4.8) Monocytes # (Auto) 0.7 x10^3/uL (0.0-1.1) Eosinophils # (Auto) 0.2 x10^3/uL (0.0-0.7) Basophils # (Auto) 0.1 x10^3/uL (0.0-0.2) Platelet Estimate Increased (ADEQUATE) Anisocytosis Slight Sodium Level 128 mmol/L (136-145) Potassium Level 3.6 mmol/L (3.5-5.1) Chloride Level 91 mmol/L (98-107) Carbon Dioxide Level 25 mmol/L (21-32) Anion Gap 12 (6-14) Blood Urea Nitrogen 7 mg/dL (7-20) Creatinine 0.8 mg/dL (0.6-1.0) Estimated GFR (Cockcroft-Gault) 69.7 BUN/Creatinine Ratio 9 (6-20) Glucose Level 144 mg/dL (70-99) Calcium Level 8.7 mg/dL (8.5-10.1) Magnesium Level 1.4 mg/dL (1.8-2.4) Total Bilirubin 0.9 mg/dL (0.2-1.0) Aspartate Amino Transf (AST/SGOT) 21 U/L (15-37) Alanine Aminotransferase (ALT/SGPT) 21 U/L (14-59) Alkaline Phosphatase 112 U/L (46-116) Creatine Kinase 127 U/L (26-192) Creatine Kinase MB (Mass) 3.0 ng/mL (0.0-3.6) Creatine Kinase MB Relative Index 2.4 % (0-4) Troponin I Quantitative 0.184 ng/mL (0.000-0.055) 1.263 ng/mL (0.000-0.055) Total Protein 7.3 g/dL (6.4-8.2) Albumin 3.5 g/dL (3.4-5.0) Albumin/Globulin Ratio 0.9 (1.0-1.7) Ethyl Alcohol Level < 10 mg/dL (0-10) Prothrombin Time 13.3 SEC (11.7-14.0) Prothromb Time International Ratio 1.1 (0.8-1.1) Activated Partial Thromboplast Time 33 SEC (24-38) Test 04/23/17 03:55 White Blood Count 12.1 x10^3/uL (4.0-11.0) Red Blood Count 5.29 x10^6/uL (3.50-5.40) Hemoglobin 14.7 g/dL (12.0-15.5) Hematocrit 45.3 % (36.0-47.0) Mean Corpuscular Volume 86 fL (79-100) Mean Corpuscular Hemoglobin 28 pg (25-35) Mean Corpuscular Hemoglobin Concent 33 g/dL (31-37) Red Cell Distribution Width 18.8 % (11.5-14.5) Platelet Count 1035 x10^3/uL (140-400) Neutrophils (%) (Auto) 74 % (31-73) Lymphocytes (%) (Auto) 15 % (24-48) Monocytes (%) (Auto) 8 % (0-9) Eosinophils (%) (Auto) 2 % (0-3) Basophils (%) (Auto) 1 % (0-3) Neutrophils # (Auto) 8.9 x10^3uL (1.8-7.7) Lymphocytes # (Auto) 1.9 x10^3/uL (1.0-4.8) Monocytes # (Auto) 0.9 x10^3/uL (0.0-1.1) Eosinophils # (Auto) 0.3 x10^3/uL (0.0-0.7) Basophils # (Auto) 0.2 x10^3/uL (0.0-0.2) Sodium Level 134 mmol/L (136-145) Potassium Level 4.9 mmol/L (3.5-5.1) Chloride Level 97 mmol/L (98-107) Carbon Dioxide Level 26 mmol/L (21-32) Anion Gap 11 (6-14) Blood Urea Nitrogen 9 mg/dL (7-20) Creatinine 0.7 mg/dL (0.6-1.0) Estimated GFR (Cockcroft-Gault) 81.4 Glucose Level 124 mg/dL (70-99) Calcium Level 8.6 mg/dL (8.5-10.1) Magnesium Level 1.5 mg/dL (1.8-2.4) Triglycerides Level 73 mg/dL (0-150) Cholesterol Level 104 mg/dL (0-200) LDL Cholesterol, Calculated 39 mg/dL (0-100) VLDL Cholesterol, Calculated 15 mg/dL (0-40) Non-HDL Cholesterol Calculated 54 mg/dL (0-129) HDL Cholesterol 50 mg/dL (40-60) Cholesterol/HDL Ratio 2.1 Thyroid Stimulating Hormone (TSH) 1.144 uIU/mL (0.358-3.74) VTE Prophylaxis Ordered VTE Prophylaxis Devices: No VTE Pharmacological Prophylaxi: No NIURKA GUERRIER MD April 23, 2017 10:12
[2017-04-23] MEDS ORDERED: HEPARIN for IV BOLUS 10,000 UNIT/10 ML VIAL. IV PRN (10:15)
[2017-04-23] MEDS ORDERED: HEPARIN 25,000UTS/500ML PREMIX 500 ML IV PRN (10:15)
[2017-04-23] MEDS ORDERED: ANTI-COAG MONITOR BY PHARMACY. MC PRN (10:15)
[2017-04-23 11:37] VITALS: BP 139/77
--- NOTE | 2017-04-23 11:39 | EKG ---
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
--- NOTE | 2017-04-23 12:32 | PDOC ---
Provider Note Provider Note 04/23/2017 1220 Remains to have no cardiac symptoms. Follow up EKG Sr without significant changes from yesterday Preliminary reading on TTE with normal EF and wall motion but with moderate to severe Troponin trending down. Discussed with son and agreed with MPI However pt keeps on having periods of confusion and at times agitated Pt has accidentally pulled her IV and has refused to have it replaced Will replace Mg. Will attempt for MPI tomorrow if no IV access. Continue with home plavix and home cardiac regimen. MAISHA LEYVA DRILLING FIELD SPECIALIST April 23, 2017 12:32
--- NOTE | 2017-04-23 12:40 | CARD ---
APPROVED REPORT EXAM: Two-dimensional and M-mode echocardiogram with Doppler and color Doppler. Other Information Quality : Average Rhythm : NSR INDICATION Non STEMI 2D DIMENSIONS Left Atrium(2D)2.5 (1.6-4.0cm)IVSd1.0 (0.7-1.1cm) Aortic Root(2D)3.0 (2.0-3.7cm)LVDd4.2 (3.9-5.9cm) LVOT Diameter1.7 (1.8-2.4cm)PWd1.0 (0.7-1.1cm) LVDs3.2 (2.5-4.0cm)FS (%) 19.5 % SV37.3 mlLVEF(%)52.4 (>50%) Aortic Valve AoV Peak John.283.5cm/sAoV VTI60.8cm AO Peak GR.32.1mmHgLVOT VTI 19.60cm AO Mean GR.19mmHgAVA (VTI)0.80cm2 Mitral Valve MV E Rjkrpmvr39.6cm/sMV DECEL SJEV958yo MV A Ajqbvnay60.0cm/sE/A Ratio0.8 MV A Fvgikenw141bl TDI Lateral E' P. V8.78cm/sMedial E' P. V4.74cm/s E/Lateral E'6.8E/Medial E'12.6 Tricuspid Valve TR P. Gakftmwt268yc/sRAP RQCTTFTI5irDx TR Peak Gr.72qjDtCEHX81aoGb Pulmonary Vein S1 Sihxzvhl85.3cm/sS2 Hcpeorjk45.47cm/s D2 Gboetfqq88.5cm/sPVa sxwzqast620vfxp LEFT VENTRICLE The left ventricle is normal size. There is normal left ventricular wall thickness. Left ventricle sy stolic function is normal. The Ejection Fraction is 50-55%. There is normal LV segmental wall motion. Tissue Doppler imaging reveals mild left ventricular diastolic dysfunction. RIGHT VENTRICLE The right ventricle is normal size. The right ventricular systolic function is normal. ATRIA The left atrium size is normal. The right atrium size is normal. The interatrial septum is intact wit h no evidence for an atrial septal defect or patent foramen ovale as noted on 2-D or Doppler imaging. AORTIC VALVE The aortic valve is moderately to severely calcified. It is not well visualized but appears to have s ignificant leaflet restriction. Doppler and Color Flow revealed trace aortic regurgitation. Calculate d aortic valve area is 0.8-1.0 cm2 with maximum pressure gradient of 32 mmHg and mean pressure gradie nt of 19 mmHg. May be overall consistent with low flow low gradient . MITRAL VALVE The mitral valve is normal in structure and function. There is no mitral valve stenosis. Doppler and Color Flow revealed trace mitral regurgitation. TRICUSPID VALVE The tricuspid valve is normal in structure and function. Doppler and Color Flow revealed mild tricusp id regurgitation. The PA pressure was estimated at 26 mmHg. There is no tricuspid valve stenosis. PULMONIC VALVE The pulmonic valve is not well visualized. Doppler and Color Flow revealed trace pulmonic valvular re gurgitation. There is no pulmonic valvular stenosis. GREAT VESSELS The aortic root is normal in size. Normal pulmonary venous flow (Doppler). The IVC is normal in size and collapses >50% with inspiration. PERICARDIAL EFFUSION There is no evidence of significant pericardial effusion. Critical Notification Critical Value: No <Conclusion> Left ventricle systolic function is normal. The Ejection Fraction is 50-55%. There is normal LV segmental wall motion. The aortic valve is moderately to severely calcified. It is not well visualized but appears to have s ignificant leaflet restriction. Calculated aortic valve area is 0.8-1.0 cm2 with maximum pressure gradient of 32 mmHg and mean pressu re gradient of 19 mmHg. May be overall consistent with low flow low gradient .
[2017-04-23] MEDS: METOPROLOL TART IMMED RELEASE 50 MG TABLET. PO SCH ×2 (13:00→21:00)
[2017-04-23] MEDS ORDERED: REGADENOSON 0.4 MG/5 ML DISP.SYRIN. IV ONE (14:00)
[2017-04-23 15:00] VITALS: BP 122/62
[2017-04-23] MEDS ORDERED: ACETAMINOPHEN 325 MG TABLET. PO PRN (15:00)
[2017-04-23] MEDS ORDERED: hydrALAZINE 20 MG/ML VIAL. IVP PRN (15:00)
[2017-04-23] MEDS ORDERED: ALBUTEROL SULFATE 2.5 MG/3 ML NEBU. NEB PRN (15:00)
[2017-04-23] MEDS ORDERED: ONDANSETRON PF 4 MG/2 ML VIAL. IV PRN (15:00)
[2017-04-23] MEDS ORDERED: HYDROcodone/APAP 5/325MG 1 TAB TABLET PO PRN (15:00)
[2017-04-23] MEDS: metFORMIN XR 500 MG TAB.ER.24H PO SCH (17:00)
[2017-04-23] MEDS ORDERED: HALOPERIDOL 2 MG TABLET. PO PRN (17:30)
[2017-04-23] MEDS ORDERED: HALOPERIDOL LACTATE 5 MG/ML VIAL. IVP ONE (17:30)
[2017-04-23] MEDS: MAGNESIUM OXIDE 400 MG TABLET PO SCH (17:47)
[2017-04-23 19:11] VITALS: BP 85/47
[2017-04-23] MEDS ORDERED: ATORVASTATIN CALCIUM 20 MG TABLET PO SCH (21:00)
[2017-04-23] MEDS: DOCUSATE SODIUM 100 MG CAPSULE. PO SCH (21:00)
[2017-04-23 22:39] VITALS: BP 94/46
[2017-04-24 03:30] VITALS: BP 96/47
[2017-04-24] MEDS ORDERED: CLOPIDOGREL BISULFATE 75 MG TABLET PO SCH ×2 (07:00→08:00)
[2017-04-24 07:17] VITALS: BP 118/57
--- NOTE | 2017-04-24 07:17 | HP ---
ADMIT DATE: 04/23/2017 CHIEF COMPLAINT: Altered mental status. HISTORY OF PRESENT ILLNESS: This is a 76-year-old female patient with a prior history of coronary artery disease, brought to the hospital by son for altered mental status. As per the report, the patient was wandering the neighborhood and picking the branches of the trees and the bystanders reported and the patient was brought to the EMS. Most of the history acquired from the chart review and the patient's son and reportedly, she has coronary artery disease and stent placement in the past and she was living in another city; however, a few days ago, she moved to stay with her son. Son has very limited information about her past condition other than coronary artery disease, hypertension and diabetes. Reportedly, the patient was diagnosed with Alzheimer's disease and not eating well and she is dehydrated. PAST MEDICAL HISTORY, REVIEW OF SYSTEMS AND PHYSICAL EXAMINATION: Please see my electronic H and P. LABORATORY FINDINGS: Sodium 135, potassium is 4.9, chloride is 97, BUN and creatinine glucose ____, magnesium is 1.5. Her troponin was initially 0.154, later is 1.26. Her lipid panel is within normal limits. Hematology: WBC 12.1, hemoglobin is 15.2, MCV is 87, platelets Toxicology negative. Urine, nitrites negative, leukocyte esterase moderate. IMAGING STUDIES: Head CT, no acute intracranial process seen. Chest x-ray, no acute process seen. ASSESSMENT: 1. Altered mental status, unclear etiology, questionable urinary tract infection. 2. Elevated troponins, unclear etiology. Echocardiogram and MPI stress test was ordered. 3. Hyperglycemia, on medications, not insulin. 4. Failure to thrive. 5. Dehydration. 6. Alzheimer's dementia with episodes of agitation . PLAN: 1. The patient has been placed on cardiac floor and currently, she is on telemetry and placed with a 1:1 sitter. 2. The patient's son agreeable to send her for stress test, awaiting the final results. 3. Continue her Rocephin. 4. decreased oral intake; however, the patient is making it difficult for staff to administer medications. 5. The patient is alert, but she did not recall any events and not able to provide any history. She just stares at me and smiles. 6. A 1:1 sitter and safety precautions, fall precautions. 7. Prognosis is guarded. 8. SSI 9. 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 NIURKA GUERRIER MD DR: Ronak JOB#: [id number] / [id number] VAHID
[2017-04-24] MEDS ORDERED: LEVOTHYROXINE 100 MCG TABLET PO SCH (07:30)
[2017-04-24] MEDS: METOPROLOL TART IMMED RELEASE 50 MG TABLET. PO SCH (07:57)
[2017-04-24] MEDS: DOCUSATE SODIUM 100 MG CAPSULE. PO SCH (07:58)
[2017-04-24] MEDS: MAGNESIUM OXIDE 400 MG TABLET PO SCH (07:58)
[2017-04-24] MEDS: metFORMIN XR 500 MG TAB.ER.24H PO SCH ×2 (07:59→11:24)
[2017-04-24 08:34] LABS: BASO # 0.5 x10^3/uL (0.0-0.2); BASO % 5 % (0-3); EOS % 3 % (0-3); HEMATOCRIT 42.1 % (36.0-47.0); HEMOGLOBIN 13.7 g/dL (12.0-15.5); LYMPH # 1.5 x10^3/uL (1.0-4.8); LYMPH % 15 % (24-48); MEAN CORPUSCULAR HEMOGLOBIN 28 pg (25-35); MEAN CORPUSCULAR HGB CONC 33 g/dL (31-37); MEAN CORPUSCULAR VOLUME 87 fL (79-100); MONO % 9 % (0-9); NEUT % 68 % (31-73); PLATELET COUNT 831 x10^3/uL (140-400); RED BLOOD COUNT 4.84 x10^6/uL (3.50-5.40); RED CELL DISTRIBUTION WIDTH 18.7 % (11.5-14.5); WHITE BLOOD COUNT 9.9 x10^3/uL (4.0-11.0)
--- NOTE | 2017-04-24 08:43 | RAD ---
APPROVED REPORT Test Type: Pharmacological Stress Nurse/Tech: marilyn chavez Test Indications: elevated troponin Cardiac History: HTN, VT, SEE EHR Medications: SEE EHR Medical History: DIABETES, SEE EHR Resting ECG: SR Resting Heart Rate: 68 bpm Resting Blood Pressure: 122/62mmHg Pretest Chest Pain: No chest pain Nurse/Tech Notes LUNG SOUNDS DIMINSHED, S1S2 WNL. Consent: The procedure was explained to the patient in lay terms. Informed consent was witnessed. Evans eout was entered into [employer] History and Stress Test performed by SOHAM Arrieta Pharm. Details Pharmacologic stress testing was performed using 0.4mg per 5ml of regadenoson given intravenously ove r 7-10 seconds. Stress Symptoms HEADACHE POST EXERCISE Max HR: 111 bpm Max Blood Pressure: 124/59mmHg Chest Pain: No. Arrhythmia: No. ST Change: No. INTERPRETATION Stress EKG Conclusion: Baseline EKG showed sinus rhythm. No ischemic changes at peak stress. No arr hythmias. Imaging Protocol IMAGE PROTOCOL: Rest Tc-99m/stress Tc-99m 1 day Rest: Stress: Viability: Radiopharm.Tc99m UuhdhwdmvPq76h Sestamibi Nhuj37dJv 36.3mCi Duration 15min. 10min. Img Date 04/23/2017 04/23/2017 Img Time 60 75 Rest Admin Site:IV - Left ForearmAdministrator:RT Miley (R)(N) Stress Admin Site: IV - Left ForearmAdministrator: SOHAM Arrieta STRESS DATA End Diast. Vol.65.0mlAv. Heart Rate73.0bpm End Syst. Vol.17.0mlCO Index BSA0.0L/min Myocardial Strh855.0gEject. Ygbfmtcw48.0% Stress Rates Pk. Fill Rate3.23EDV/secLVtime Pk. Fill 230.81msec Pk. Empty Rate4.39ESV/secLVtime Pk. Fjiby839.18msec 12/03 Pk. Fill0.54EDV/sec Stress Scores Regional WT0.00Summed WT0.00 Regional WM0.00Summed WM0.00 Study quality was good. Left Ventricular size was Normal at Rest and Stress. Lung uptake was Normal. Left Ventricular ejection fraction is 74%. The rest and stress images show normal perfusion, normal contraction and thickening. LV Perf. Quant 17 Seg. SSS4.00 17 Seg. SRS7.00 17 Seg. SDS0.00 Stress Defect Extent (% LAD)0.00Rest Defect Extent (% LAD)1.30Rev. Defect Extent (% LAD)0.00 Stress Defect Extent (% LCX) 31.30Rest Defect Extent (% LCX)52.50Rev. Defect Extent (% LCX)0.00 Stress Defect Extent (% RCA)0.00Rest Defect Extent (% RCA)0.00Rev. Defect Extent (% RCA)0.00 Stress Defect Extent (% EDWARD)7.00Rest Defect Extent (% EDWARD)15.20Rev. Defect Extent (% EDWARD)0.00 Conclusion 1. Regadenoson cardioisotope stress test did not show any evidence of ischemia or infarct. 2. Normal left ventricular systolic function with ejection fraction calculated at 74%. 3. Low risk for cardiac events.
[2017-04-24 08:53] LABS: CALCIUM 8.2 mg/dL (8.5-10.1); CREATININE 0.8 mg/dL (0.6-1.0); GFR 69.7; POTASSIUM 3.3 mmol/L (3.5-5.1)
[2017-04-24] MEDS ORDERED: hydroCHLOROthiazide 25 MG TABLET PO SCH (09:00)
[2017-04-24] MEDS ORDERED: ATENOLOL 50 MG TABLET. PO SCH (09:00)
[2017-04-24] MEDS ORDERED: HYDROXYUREA 500 MG CAPSULE PO SCH ×2 (09:00)
[2017-04-24] MEDS ORDERED: glipiZIDE 5 MG TABLET PO SCH (09:00)
[2017-04-24] MEDS ORDERED: NON FORMULARY ITEM (Glipizide 10 MG) PO SCH (09:00)
[2017-04-24 10:28] VITALS: BP 119/60
[2017-04-24] MEDS ORDERED: POTASSIUM CHLORIDE 20 MEQ TABLET.ER. PO ONE (11:15)
--- NOTE | 2017-04-24 11:16 | PDOC ---
CARDIO Progress Notes Date and Time Date of Service 04/24/2017 Time of Evaluation 1030 Subjective Subjective: Other (sleeping comfortably supine. Currently on 1:1 supervision) Vitals Vitals Vital Signs Date Time Temp Pulse Resp B/P (MAP) Pulse Ox O2 Delivery O2 Flow Rate FiO2 04/24/17 10:28 63 18 119/60 (79) 94 Room Air 04/23/17 22:39 97.9 97.9 Weight Weight [ ] Input and Output Intake and Output Intake and Output 04/24/17 07:00 Intake Total 120 ml Balance 120 ml Intake Oral 120 ml # Voids 5 Laboratory Labs Laboratory Tests Test 04/23/17 17:08 04/24/17 08:16 04/24/17 08:18 Heparin Anti-Xa Act, Unfractionated < 0.10 IU/mL (0.30-0.70) White Blood Count 9.9 x10^3/uL (4.0-11.0) Red Blood Count 4.84 x10^6/uL (3.50-5.40) Hemoglobin 13.7 g/dL (12.0-15.5) Hematocrit 42.1 % (36.0-47.0) Mean Corpuscular Volume 87 fL (79-100) Mean Corpuscular Hemoglobin 28 pg (25-35) Mean Corpuscular Hemoglobin Concent 33 g/dL (31-37) Red Cell Distribution Width 18.7 % (11.5-14.5) Platelet Count 831 x10^3/uL (140-400) Neutrophils (%) (Auto) 68 % (31-73) Lymphocytes (%) (Auto) 15 % (24-48) Monocytes (%) (Auto) 9 % (0-9) Eosinophils (%) (Auto) 3 % (0-3) Basophils (%) (Auto) 5 % (0-3) Neutrophils # (Auto) 6.7 x10^3uL (1.8-7.7) Lymphocytes # (Auto) 1.5 x10^3/uL (1.0-4.8) Monocytes # (Auto) 0.9 x10^3/uL (0.0-1.1) Eosinophils # (Auto) 0.2 x10^3/uL (0.0-0.7) Basophils # (Auto) 0.5 x10^3/uL (0.0-0.2) Sodium Level 141 mmol/L (136-145) Potassium Level 3.3 mmol/L (3.5-5.1) Chloride Level 105 mmol/L (98-107) Carbon Dioxide Level 28 mmol/L (21-32) Anion Gap 8 (6-14) Blood Urea Nitrogen 10 mg/dL (7-20) Creatinine 0.8 mg/dL (0.6-1.0) Estimated GFR (Cockcroft-Gault) 69.7 Glucose Level 89 mg/dL (70-99) Calcium Level 8.2 mg/dL (8.5-10.1) Physical Exam HEENT: Neck Supple W Full Motion Chest: Symmetric LUNGS: Clear to Auscultation Heart: S1S2, RRR (no tele overnight, pt has refused) Abdomen: Soft N/T Extremities: Other (trace to 1 + bilateral LE edema) Neurology: other (asleep) Assessment Assessment 1. NSTEMI: Troponin at 1.263. No cardiac symptoms. Type 2 likely from infectious process, associated , and renal insufficiency 2. Alzheimers dementia: notable for hospital psychoses and agitation with contributing low Na and UTI. Newly diagnosed dementia, not on regimen. 3. Moderate : stable 4. Hyponatremia: resolved 5. UTI: per PCP 6. Essential Thrombocytosis: PLT 831 today on hydroxyurea.per PCP 7. CAD: PCI/stent >10 yrs ago at [facility]. On home plavix 8. Hypomagnesemia: resolved 9. HTN: Controlled 10. DM2/HLP: controlled 11. Hypothyroidism: TSH normal on replacement 12. Hx of colon CA: unknown type and treatment Recommendations 1. TTE with normal wall motion and EF, MPI unremarkable for ischemia. Continue with secondary prevention including plavix. 2. on 1:1 supervision. OK to DC per cardiac perspective but doubt son would be able to supervise as he works. Will need 24 hour caregiver. 3. Follow up with [facility] cardiology, if not follow up in our office in 4 weeks. 4. MAISHA Coulter APRN April 24, 2017 11:16
[2017-04-24 14:09] VITALS: BP 144/74
--- NOTE | 2017-04-24 14:31 | PDOC ---
PROGRESS NOTES Chief Complaint Chief Complaint 1. UTI, AMS, elevated troponin 2. CAD 3. HTN 4. SD 5. Hyperlipidemia 6. Dementia (Alzheimers) 7. Urinary Incontinence 8. Diabetes (2) 9. Hypothyroidism 10. Cholecystectomy 11. Hysterectomy History of Present Illness History of Present Illness Patient seen this am in in NAD. Discussed with patient some of cardio's thoughts- repeat EKG, TTE, MPI. Discussed with nurse patient being on 2 beta-blockers. Nurses held doses. Patient wants to be D/C. Vitals Vitals Vital Signs Date Time Temp Pulse Resp B/P (MAP) Pulse Ox O2 Delivery O2 Flow Rate FiO2 04/24/17 14:09 97.4 65 18 144/74 (97) 96 Room Air 97.4 Physical Exam General: Alert, Oriented X3, Cooperative, No acute distress Heart: Regular rate (SR), Normal S1, Normal S2, Other (5/6 systolic murmur to MECHELLE border) Lungs: Clear Abdomen: Normal bowel sounds, No tenderness, No hepatosplenomegaly Extremities: No clubbing, No cyanosis, No edema Skin: No rashes, No significant lesion Labs LABS Laboratory Tests Test 04/23/17 17:08 04/24/17 08:16 04/24/17 08:18 Heparin Anti-Xa Act, Unfractionated < 0.10 IU/mL (0.30-0.70) White Blood Count 9.9 x10^3/uL (4.0-11.0) Red Blood Count 4.84 x10^6/uL (3.50-5.40) Hemoglobin 13.7 g/dL (12.0-15.5) Hematocrit 42.1 % (36.0-47.0) Mean Corpuscular Volume 87 fL (79-100) Mean Corpuscular Hemoglobin 28 pg (25-35) Mean Corpuscular Hemoglobin Concent 33 g/dL (31-37) Red Cell Distribution Width 18.7 % (11.5-14.5) Platelet Count 831 x10^3/uL (140-400) Neutrophils (%) (Auto) 68 % (31-73) Lymphocytes (%) (Auto) 15 % (24-48) Monocytes (%) (Auto) 9 % (0-9) Eosinophils (%) (Auto) 3 % (0-3) Basophils (%) (Auto) 5 % (0-3) Neutrophils # (Auto) 6.7 x10^3uL (1.8-7.7) Lymphocytes # (Auto) 1.5 x10^3/uL (1.0-4.8) Monocytes # (Auto) 0.9 x10^3/uL (0.0-1.1) Eosinophils # (Auto) 0.2 x10^3/uL (0.0-0.7) Basophils # (Auto) 0.5 x10^3/uL (0.0-0.2) Sodium Level 141 mmol/L (136-145) Potassium Level 3.3 mmol/L (3.5-5.1) Chloride Level 105 mmol/L (98-107) Carbon Dioxide Level 28 mmol/L (21-32) Anion Gap 8 (6-14) Blood Urea Nitrogen 10 mg/dL (7-20) Creatinine 0.8 mg/dL (0.6-1.0) Estimated GFR (Cockcroft-Gault) 69.7 Glucose Level 89 mg/dL (70-99) Calcium Level 8.2 mg/dL (8.5-10.1) Magnesium Level 1.9 mg/dL (1.8-2.4) Review of Systems Review of Systems No ROSA/blurry vision No rashes No JVD No SOB Assessment and Plan Assessmemt and Plan Problems Medical Problems: (1) Dementia Status: Acute (2) Hyponatremia Status: Acute (3) Thrombocytosis Status: Acute 4. UTI, AMS, elevated troponin 5. CAD 6. HTN 7. SD 8. Hyperlipidemia 9. Urinary Incontinence 10. Diabetes (2) 11. Hypothyroidism 12. Cholecystectomy 13. Hysterectomy Plan: -Continue current medications and adjust accordingly as needed. -Continue speciality consultations. -Continue PT/OT. -Nuclear med scan from 04/23/17 read today (04/24/17) 1. Regadenoson cardioisotope stress test did not show any evidence of ischemia or infarct. 2. Normal left ventricular systolic function with ejection fraction calculated at 74%. 3. Low risk for cardiac events. -Probable D/C today (04/24/17) if specialties agree. Problems: Comment Review of Relevant I have reviewed the following items bharath (where applicable) has been applied. Labs Laboratory Tests Test 04/22/17 19:55 04/22/17 20:14 04/22/17 20:40 04/23/17 03:50 Urine Collection Type Unknown Urine Color Yellow Urine Clarity Clear Urine pH 5.5 Urine Specific [place] <=1.005 Urine Protein Negative mg/dL (NEG-TRACE) Urine Glucose (UA) Negative mg/dL (NEG) Urine Ketones (Stick) Negative mg/dL (NEG) Urine Blood Negative (NEG) Urine Nitrite Negative (NEG) Urine Bilirubin Negative (NEG) Urine Urobilinogen Dipstick 0.2 mg/dL (0.2 mg/dL) Urine Leukocyte Esterase Moderate (NEG) Urine RBC 3-5 /HPF (0-2) Urine WBC Tntc /HPF (0-4) Urine Squamous Epithelial Cells Mod /LPF Urine Bacteria Few /HPF (0-FEW) Urine Opiates Screen Neg (NEG) Urine Methadone Screen Neg (NEG) Urine Barbiturates Neg (NEG) Urine Phencyclidine Screen Neg (NEG) Urine Amphetamine/Methamphetamine Neg (NEG) Urine Benzodiazepines Screen Neg (NEG) Urine Cocaine Screen Neg (NEG) Urine Cannabinoids Screen Neg (NEG) Urine Ethyl Alcohol Neg (NEG) White Blood Count 12.1 x10^3/uL (4.0-11.0) Red Blood Count 5.39 x10^6/uL (3.50-5.40) Hemoglobin 15.2 g/dL (12.0-15.5) Hematocrit 46.6 % (36.0-47.0) Mean Corpuscular Volume 87 fL (79-100) Mean Corpuscular Hemoglobin 28 pg (25-35) Mean Corpuscular Hemoglobin Concent 33 g/dL (31-37) Red Cell Distribution Width 18.5 % (11.5-14.5) Platelet Count 964 x10^3/uL (140-400) Neutrophils (%) (Auto) 77 % (31-73) Lymphocytes (%) (Auto) 14 % (24-48) Monocytes (%) (Auto) 6 % (0-9) Eosinophils (%) (Auto) 2 % (0-3) Basophils (%) (Auto) 1 % (0-3) Neutrophils # (Auto) 9.3 x10^3uL (1.8-7.7) Lymphocytes # (Auto) 1.7 x10^3/uL (1.0-4.8) Monocytes # (Auto) 0.7 x10^3/uL (0.0-1.1) Eosinophils # (Auto) 0.2 x10^3/uL (0.0-0.7) Basophils # (Auto) 0.1 x10^3/uL (0.0-0.2) Platelet Estimate Increased (ADEQUATE) Anisocytosis Slight Sodium Level 128 mmol/L (136-145) Potassium Level 3.6 mmol/L (3.5-5.1) Chloride Level 91 mmol/L (98-107) Carbon Dioxide Level 25 mmol/L (21-32) Anion Gap 12 (6-14) Blood Urea Nitrogen 7 mg/dL (7-20) Creatinine 0.8 mg/dL (0.6-1.0) Estimated GFR (Cockcroft-Gault) 69.7 BUN/Creatinine Ratio 9 (6-20) Glucose Level 144 mg/dL (70-99) Calcium Level 8.7 mg/dL (8.5-10.1) Magnesium Level 1.4 mg/dL (1.8-2.4) Total Bilirubin 0.9 mg/dL (0.2-1.0) Aspartate Amino Transf (AST/SGOT) 21 U/L (15-37) Alanine Aminotransferase (ALT/SGPT) 21 U/L (14-59) Alkaline Phosphatase 112 U/L (46-116) Creatine Kinase 127 U/L (26-192) Creatine Kinase MB (Mass) 3.0 ng/mL (0.0-3.6) Creatine Kinase MB Relative Index 2.4 % (0-4) Troponin I Quantitative 0.184 ng/mL (0.000-0.055) 1.263 ng/mL (0.000-0.055) Total Protein 7.3 g/dL (6.4-8.2) Albumin 3.5 g/dL (3.4-5.0) Albumin/Globulin Ratio 0.9 (1.0-1.7) Ethyl Alcohol Level < 10 mg/dL (0-10) Prothrombin Time 13.3 SEC (11.7-14.0) Prothromb Time International Ratio 1.1 (0.8-1.1) Activated Partial Thromboplast Time 33 SEC (24-38) Test 04/23/17 03:55 04/23/17 09:40 04/23/17 17:08 04/24/17 08:16 White Blood Count 12.1 x10^3/uL (4.0-11.0) 9.9 x10^3/uL (4.0-11.0) Red Blood Count 5.29 x10^6/uL (3.50-5.40) 4.84 x10^6/uL (3.50-5.40) Hemoglobin 14.7 g/dL (12.0-15.5) 13.7 g/dL (12.0-15.5) Hematocrit 45.3 % (36.0-47.0) 42.1 % (36.0-47.0) Mean Corpuscular Volume 86 fL (79-100) 87 fL (79-100) Mean Corpuscular Hemoglobin 28 pg (25-35) 28 pg (25-35) Mean Corpuscular Hemoglobin Concent 33 g/dL (31-37) 33 g/dL (31-37) Red Cell Distribution Width 18.8 % (11.5-14.5) 18.7 % (11.5-14.5) Platelet Count 1035 x10^3/uL (140-400) 831 x10^3/uL (140-400) Neutrophils (%) (Auto) 74 % (31-73) 68 % (31-73) Lymphocytes (%) (Auto) 15 % (24-48) 15 % (24-48) Monocytes (%) (Auto) 8 % (0-9) 9 % (0-9) Eosinophils (%) (Auto) 2 % (0-3) 3 % (0-3) Basophils (%) (Auto) 1 % (0-3) 5 % (0-3) Neutrophils # (Auto) 8.9 x10^3uL (1.8-7.7) 6.7 x10^3uL (1.8-7.7) Lymphocytes # (Auto) 1.9 x10^3/uL (1.0-4.8) 1.5 x10^3/uL (1.0-4.8) Monocytes # (Auto) 0.9 x10^3/uL (0.0-1.1) 0.9 x10^3/uL (0.0-1.1) Eosinophils # (Auto) 0.3 x10^3/uL (0.0-0.7) 0.2 x10^3/uL (0.0-0.7) Basophils # (Auto) 0.2 x10^3/uL (0.0-0.2) 0.5 x10^3/uL (0.0-0.2) Sodium Level 134 mmol/L (136-145) Potassium Level 4.9 mmol/L (3.5-5.1) Chloride Level 97 mmol/L (98-107) Carbon Dioxide Level 26 mmol/L (21-32) Anion Gap 11 (6-14) Blood Urea Nitrogen 9 mg/dL (7-20) Creatinine 0.7 mg/dL (0.6-1.0) Estimated GFR (Cockcroft-Gault) 81.4 Glucose Level 124 mg/dL (70-99) Calcium Level 8.6 mg/dL (8.5-10.1) Magnesium Level 1.5 mg/dL (1.8-2.4) Triglycerides Level 73 mg/dL (0-150) Cholesterol Level 104 mg/dL (0-200) LDL Cholesterol, Calculated 39 mg/dL (0-100) VLDL Cholesterol, Calculated 15 mg/dL (0-40) Non-HDL Cholesterol Calculated 54 mg/dL (0-129) HDL Cholesterol 50 mg/dL (40-60) Cholesterol/HDL Ratio 2.1 Thyroid Stimulating Hormone (TSH) 1.144 uIU/mL (0.358-3.74) Troponin I Quantitative 1.243 ng/mL (0.000-0.055) Heparin Anti-Xa Act, Unfractionated < 0.10 IU/mL (0.30-0.70) Test 04/24/17 08:18 Sodium Level 141 mmol/L (136-145) Potassium Level 3.3 mmol/L (3.5-5.1) Chloride Level 105 mmol/L (98-107) Carbon Dioxide Level 28 mmol/L (21-32) Anion Gap 8 (6-14) Blood Urea Nitrogen 10 mg/dL (7-20) Creatinine 0.8 mg/dL (0.6-1.0) Estimated GFR (Cockcroft-Gault) 69.7 Glucose Level 89 mg/dL (70-99) Calcium Level 8.2 mg/dL (8.5-10.1) Magnesium Level 1.9 mg/dL (1.8-2.4) Laboratory Tests Test 04/23/17 17:08 04/24/17 08:16 04/24/17 08:18 Heparin Anti-Xa Act, Unfractionated < 0.10 IU/mL (0.30-0.70) White Blood Count 9.9 x10^3/uL (4.0-11.0) Red Blood Count 4.84 x10^6/uL (3.50-5.40) Hemoglobin 13.7 g/dL (12.0-15.5) Hematocrit 42.1 % (36.0-47.0) Mean Corpuscular Volume 87 fL (79-100) Mean Corpuscular Hemoglobin 28 pg (25-35) Mean Corpuscular Hemoglobin Concent 33 g/dL (31-37) Red Cell Distribution Width 18.7 % (11.5-14.5) Platelet Count 831 x10^3/uL (140-400) Neutrophils (%) (Auto) 68 % (31-73) Lymphocytes (%) (Auto) 15 % (24-48) Monocytes (%) (Auto) 9 % (0-9) Eosinophils (%) (Auto) 3 % (0-3) Basophils (%) (Auto) 5 % (0-3) Neutrophils # (Auto) 6.7 x10^3uL (1.8-7.7) Lymphocytes # (Auto) 1.5 x10^3/uL (1.0-4.8) Monocytes # (Auto) 0.9 x10^3/uL (0.0-1.1) Eosinophils # (Auto) 0.2 x10^3/uL (0.0-0.7) Basophils # (Auto) 0.5 x10^3/uL (0.0-0.2) Sodium Level 141 mmol/L (136-145) Potassium Level 3.3 mmol/L (3.5-5.1) Chloride Level 105 mmol/L (98-107) Carbon Dioxide Level 28 mmol/L (21-32) Anion Gap 8 (6-14) Blood Urea Nitrogen 10 mg/dL (7-20) Creatinine 0.8 mg/dL (0.6-1.0) Estimated GFR (Cockcroft-Gault) 69.7 Glucose Level 89 mg/dL (70-99) Calcium Level 8.2 mg/dL (8.5-10.1) Magnesium Level 1.9 mg/dL (1.8-2.4) Microbiology 04/22/17 Urine Culture - Final, Complete 04/22/17 Urine Culture Result 1 (JAIME) - Final, Complete Medications Current Medications Sodium Chloride 1,000 ml @ 1,000 mls/hr 1X ONCE IV Last administered on 20:00; Start 04/22/17 at 20:00; Stop 04/22/17 at 20:59; Status DC Ceftriaxone Sodium 50 ml @ 100 mls/hr 1X ONCE IV Last administered on 21:00; Start 04/22/17 at 21:00; Stop 04/22/17 at 21:29; Status DC Aspirin (Cathy Aspirin) 325 mg 1X ONCE PO Last administered on 04/22/17 22:10 ; Start 04/22/17 at 22:00; Stop 04/22/17 at 22:01; Status DC Ondansetron HCl (Zofran) 4 mg PRN Q8HRS PRN IV NAUSEA/VOMITING; Start 04/22/17 at 22:00; Stop 04/23/17 at 21:59; Status DC Sodium Chloride 1,000 ml @ 100 mls/hr Q10H IV Last administered on 04/22/17 22:10; Start 04/22/17 at 22:00; Stop 04/23/17 at 21:59; Status DC Acetaminophen (Tylenol) 650 mg PRN Q4HRS PRN PO FEVER; Start 04/22/17 at 22:00 ; Stop 04/23/17 at 21:59; Status DC Ceftriaxone Sodium 1 gm/ Sodium Chloride 50 ml @ 100 mls/hr Q24H IV Last administered on 04/23/17 21:53; Start 04/23/17 at 22:00 Magnesium Sulfate/ Dextrose 50 ml @ 25 mls/hr 1X ONCE IV Last administered on 04/23/17 10:35; Start 04/23/17 at 09:30; Stop 04/23/17 at 11:29; Status DC Heparin Sodium/ Dextrose 500 ml @ 0 mls/hr CONT PRN IV SEE I/O RECORD Last administered on 04/23/17 10:41; Start 04/23/17 at 10:15; Stop 04/23/17 at 11:51 ; Status DC Heparin Sodium (Porcine) (Heparin Sodium) 1,700 unit PRN Q6HRS PRN IV FOR UFH LEVEL LESS THAN 0.2 Last administered on 04/23/17 10:36; Start 04/23/17 at 10: 15; Stop 04/23/17 at 11:51; Status DC Info (Anti-Coagulation Monitoring By Pharmacy) 1 each PRN DAILY PRN MC SEE COMMENTS; Start 04/23/17 at 10:15; Status Cancel Magnesium Oxide (Magnesium Oxide) 400 mg DAILY PO Last administered on 07:58; Start 04/23/17 at 12:00 Enoxaparin Sodium (Lovenox 80mg Syringe) 70 mg 1X ONCE SQ ; Start 04/23/17 at 12:30; Stop 04/23/17 at 12:43; Status DC Clopidogrel Bisulfate (Plavix) 75 mg DAILYWBKFT PO ; Start 04/24/17 at 08:00 Atorvastatin Calcium (Lipitor) 20 mg QHS PO ; Start 04/23/17 at 21:00 Metoprolol Tartrate (Lopressor) 50 mg BID PO Last administered on 04/24/17 07: 57; Start 04/23/17 at 13:00 Regadenoson (Lexiscan) 0.4 mg 1X ONCE IV Last administered on 04/23/17 15:02 ; Start 04/23/17 at 14:00; Stop 04/23/17 at 14:01; Status DC Acetaminophen (Tylenol) 325 mg PRN Q6HRS PRN PO MILD PAIN / TEMP; Start at 15:00 Acetaminophen/ Hydrocodone Bitart (Lortab 5/325) 1 tab PRN Q6HRS PRN PO MODERATE TO SEVERE PAIN Last administered on 04/23/17 17:47; Start 04/23/17 at 15:00 Hydralazine HCl (Apresoline) 10 mg PRN Q4HRS PRN IVP ELEVATED BP, SEE COMMENTS ; Start 04/23/17 at 15:00 Ondansetron HCl (Zofran) 4 mg PRN Q8HRS PRN IV NAUSEA/VOMITING; Start 04/23/17 at 15:00 Albuterol Sulfate (Ventolin Neb Soln) 2.5 mg PRN Q4HRS PRN NEB SHORTNESS OF BREATH; Start 04/23/17 at 15:00 Clopidogrel Bisulfate (Plavix) 75 mg DAILY07 PO Last administered on 04/24/17 07:56; Start 04/24/17 at 07:00 Docusate Sodium (Colace) 100 mg BID PO Last administered on 04/24/17 07:58; Start 04/23/17 at 21:00 Glipizide (Glucotrol) 5 mg DAILY PO ; Start 04/24/17 at 09:00; Stop 04/24/17 at 13:33; Status DC Hydroxyurea (Hydrea) 500 mg DAILY PO Last administered on 04/24/17 07:59; Start 04/24/17 at 09:00 Hydroxyurea (Hydrea) 500 mg DAILY PO ; Start 04/24/17 at 09:00; Status UNV Levothyroxine Sodium (Synthroid) 100 mcg DAILYAC PO Last administered on 07:57; Start 04/24/17 at 07:30 Metformin HCl (Glucophage Xr) 500 mg TIDWMEALS PO ; Start 04/23/17 at 17:00; Stop 04/24/17 at 13:32; Status DC Atenolol (Tenormin) 50 mg DAILY PO Last administered on 04/24/17 07:57; Start 04/24/17 at 09:00 Non-Formulary Medication 10 mg DAILY PO ; Start 04/24/17 at 09:00; Stop at 13:33; Status DC Hydrochlorothiazide (Hydrodiuril) 6.25 mg DAILY PO Last administered on 07:58; Start 04/24/17 at 09:00 Haloperidol Lactate (Haldol) 5 mg 1X ONCE IVP Last administered on 04/23/17 17:48; Start 04/23/17 at 17:30; Stop 04/23/17 at 17:40; Status DC Haloperidol (Haldol) 4 mg PRN Q8HRS PRN PO AGITATION; Start 04/23/17 at 17:30 Potassium Chloride (Klor-Con) 40 meq 1X ONCE PO Last administered on t 11:35; Start 04/24/17 at 11:15; Stop 04/24/17 at 11:19; Status DC Metformin HCl (Glucophage) 500 mg TIDWMEALS PO ; Start 04/24/17 at 17:00 Glipizide (Glucotrol) 5 mg DAILY PO ; Start 04/25/17 at 09:00 Active Scripts Active Reported Levothyroxine Sodium 100 Mcg Tablet 100 Mcg PO DAILYAC Docusate Sodium 100 Mg Capsule 100 Mg PO BID Clopidogrel (Clopidogrel Bisulfate) 75 Mg Tablet 75 Mg PO DAILY Glipizide 5 Mg Tablet 5 Mg PO Glipizide 10 Mg Tablet 10 Mg PO DAILY Bisoprolol-Hctz 5-6.25 Mg Tab (Bisoprolol Fumarate/Hctz) 1 Each Tablet 1 Each PO DAILYAC Metformin Hcl Er (Metformin Hcl) 500 Mg Tab.er.24h 500 Mg PO TIDWMEALS Hydroxyurea 500 Mg Capsule 500 Mg PO Hydroxyurea 500 Mg Capsule 500 Mg PO DAILY Unable To Obtain Meds From Prior To Admit (Info) Each 1 Each Vitals/I & O Vital Sign - Last 24 Hours 04/23/17 04/23/17 04/23/17 04/23/17 15:00 16:19 17:47 18:50 Pulse 67 Resp 17 B/P (MAP) 122/62 (82) Pulse Ox 98 95 95 95 O2 Delivery Room Air Room Air Room Air Room Air 04/23/17 04/23/17 04/23/17 04/23/17 19:11 19:25 21:00 22:39 Temp 98.3 97.9 98.3 97.9 Pulse 77 77 63 Resp 17 16 B/P (MAP) 85/47 (60) 85/47 94/46 (62) Pulse Ox 94 94 O2 Delivery Room Air Room Air Room Air 04/24/17 04/24/17 04/24/17 04/24/17 03:30 07:17 07:57 07:57 Pulse 65 67 67 67 Resp 16 18 B/P (MAP) 96/47 (63) 118/57 (77) 118/57 118/57 Pulse Ox 94 94 O2 Delivery Room Air Room Air 04/24/17 04/24/17 04/24/17 08:54 10:28 14:09 Temp 97.4 97.4 Pulse 63 65 Resp 18 18 B/P (MAP) 119/60 (79) 144/74 (97) Pulse Ox 94 96 O2 Delivery Room Air Room Air Room Air Intake and Output 04/23/17 04/23/17 04/24/17 15:00 23:00 07:00 Intake Total 120 ml 0 ml Balance 120 ml 0 ml ANN LOVE III DO April 24, 2017 14:31
[2017-04-24] MEDS ORDERED: metFORMIN 500 MG TABLET PO SCH (17:00)
[2017-04-25] MEDS ORDERED: glipiZIDE 5 MG TABLET PO SCH (09:00)
== END 2017-04-24 17:00 | disposition home or self-care (01) | DRG 280 ==
LOC: ER 19:32 → 2 SOUTH 21:00
PROVIDERS: ADMIT Internal Medicine; ATTEND Internal Medicine
DX: I21.4 Non-ST elevation (NSTEMI) myocardial infarction (principal); G93.41 Metabolic encephalopathy; E87.1 Hypo-osmolality and hyponatremia; N39.0 Urinary tract infection, site not specified; D47.3 Essential (hemorrhagic) thrombocythemia; D75.89 Other specified diseases of blood and blood-forming organs; E03.9 Hypothyroidism, unspecified; E11.65 Type 2 diabetes mellitus with hyperglycemia; E78.5 Hyperlipidemia, unspecified; E83.42 Hypomagnesemia; E86.0 Dehydration; F02.80 Dementia in other diseases classified elsewhere, unspecified severity, without behavioral disturbance, psychotic disturbance, mood disturbance, and anxiety; G30.9 Alzheimer's disease, unspecified; I10 Essential (primary) hypertension; F32.9 Major depressive disorder, single episode, unspecified; I25.10 Atherosclerotic heart disease of native coronary artery without angina pectoris; M48.06 Spinal stenosis, lumbar region; F41.9 Anxiety disorder, unspecified; K21.9 Gastro-esophageal reflux disease without esophagitis; R62.7 Adult failure to thrive; Z85.038 Personal history of other malignant neoplasm of large intestine; Z95.5 Presence of coronary angioplasty implant and graft; Z90.49 Acquired absence of other specified parts of digestive tract; Z90.710 Acquired absence of both cervix and uterus
CPT/HCPCS: 36415; 70450; 71010; 78452; 80048; 80053; 80061; 81001; 82553; 83735; 84443; 84484; 85007; 85027; 85520; 85610; 85730; 87086; 93005; 93017; 93306; 94250; 94760; 96361; 96374; 96375; 96376; A9500; G0480; G0481; J0690; J0696; J1630; J2785; J7030; J7060; 99285-25

== ENCOUNTER 2017-05-20 22:13 | Emergency (ER) | payer MEDICARE, OTHER ==
[~2017-05-20] VITALS: Ht 162.6 cm; Wt 65.8 kg
[~2017-05-20 22:13] MED LIST: BISO1TAB4 PO; CLOP75TA PO; DOCU100C28 PO; GLIP10TA13 PO; GLIP5TAB10 PO; HYDR500C16 PO; LEVO100T5 PO; METF500T9 PO; UNABLE MC
[2017-05-20 22:25] VITALS: BP 135/65
--- NOTE | 2017-05-20 23:26 | PHYS DOC ---
Past Medical History Past Medical History: Cancer, Diabetes-Type II, SD Past Surgical History: Cholecystectomy, Hysterectomy Alcohol Use: None Drug Use: None Adult General Chief Complaint Chief Complaint: ALTERED MENTAL STATUS HPI HPI Patient is a 76 year old female with history significant for Alzheimer's dementia was brought to the ER today secondary to wandering around the street. Patient reports that she thought she heard someone knocked on the door that after she has cleared since she left the house and started wandering on the street. Patient was picked up bypass with denies an taken tripped and was sent here by police for evaluation. Patient has a history of hypertension diabetes coronary artery disease. Patient has no history of COPD. No abdominal surgeries. Patient has any fevers shakes chills nausea vomiting diarrhea chest pain or shortness of breath. Patient has any cough cold or runny nose. Patient reports she was recently diagnosed with UTI and she is currently on antibiotics for Patient's physical exam is benign unremarkable. Patient is alert awake oriented to person place and year. He shouldn't is consistent with her story. Patient has normal thought processes. Patient is able answer appropriate questions. Patient's able answer questions appropriately. Assessment and plan Alzheimer's dementia patient's clinically hemodynamically stable with discharge to home. Patient's son is here with her now and he reports she is currently at her baseline he feels very comfortable with her coming home and instructed not thinking she needs any further evaluation. Review of Systems Review of Systems Constitutional: Denies fever or chills [] Eyes: Denies change in visual acuity, redness, or eye pain [] All other review systems are negative except as documented in the history of present illness portion. Allergies Allergies Allergies Coded Allergies Type Severity Reaction Last Updated Verified Penicillins Allergy Intermediate 04/23/17 Yes Physical Exam Physical Exam Constitutional: Well developed, well nourished, no acute distress, non-toxic appearance. [] HENT: Normocephalic, atraumatic, bilateral external ears normal, oropharynx moist, no oral exudates, nose normal. [] Eyes: PERRLA, EOMI, conjunctiva normal, no discharge. [] Neck: Normal range of motion, no tenderness, supple, no stridor. [] Cardiovascular:Heart rate regular rhythm Lungs & Thorax: Bilateral breath sounds clear to auscultation [] Abdomen: Bowel sounds normal, soft, no tenderness, no masses, no pulsatile masses. [] Skin: Warm, dry, no erythema, no rash. [] Back: No tenderness, no CVA tenderness. [] Extremities: No tenderness, no cyanosis, no clubbing, ROM intact, baseline lower 70 edema percent Neurologic: Alert and oriented X 3, normal motor function, normal sensory function, no focal deficits noted. [] Psychologic: Affect normal, judgement normal, mood normal. [] Current Patient Data Vital Signs Vital Signs Date Time Temp Pulse Resp B/P (MAP) Pulse Ox O2 Delivery O2 Flow Rate FiO2 05/20/17 22:25 97.9 78 21 135/65 (88) 97 Room Air 97.9 EKG EKG [] Radiology/Procedures Radiology/Procedures [] Course & Med Decision Making Course & Med Decision Making Pertinent Labs and Imaging studies reviewed. (See chart for details) [] Dragon Disclaimer Dragon Disclaimer This electronic medical record was generated, in whole or in part, using a voice recognition dictation system. Departure Departure Impression: Primary Impression: Alzheimer's dementia Disposition: 01 HOME, SELF-CARE Condition: STABLE Referrals: UNKNOWN PCP NAME (PCP) Patient Instructions: CORWIN Allred MD May 20, 2017 23:26
== END 2017-05-20 23:48 | disposition home or self-care (01) ==
LOC: ER 22:13
DX: G30.9 Alzheimer's disease, unspecified (principal); F02.80 Dementia in other diseases classified elsewhere, unspecified severity, without behavioral disturbance, psychotic disturbance, mood disturbance, and anxiety; E11.59 Type 2 diabetes mellitus with other circulatory complications; I10 Essential (primary) hypertension; I25.10 Atherosclerotic heart disease of native coronary artery without angina pectoris; I25.2 Old myocardial infarction; Z87.440 Personal history of urinary (tract) infections; Z90.710 Acquired absence of both cervix and uterus; Z90.49 Acquired absence of other specified parts of digestive tract; Z88.0 Allergy status to penicillin
CPT/HCPCS: 99284

== ENCOUNTER 2017-05-26 17:37 | Emergency (ER) | payer MEDICARE, OTHER ==
[~2017-05-26] VITALS: Ht 157.5 cm; Wt 65.8 kg
[2017-05-26 18:17] VITALS: BP 169/81
[2017-05-26 18:21] LABS: BASO # 0.1 x10^3/uL (0.0-0.2); BASO % 1 % (0-3); EOS % 1 % (0-3); HEMATOCRIT 42.3 % (36.0-47.0); HEMOGLOBIN 13.7 g/dL (12.0-15.5); LYMPH # 1.4 x10^3/uL (1.0-4.8); LYMPH % 15 % (24-48); MEAN CORPUSCULAR HEMOGLOBIN 28 pg (25-35); MEAN CORPUSCULAR HGB CONC 32 g/dL (31-37); MEAN CORPUSCULAR VOLUME 87 fL (79-100); MONO % 10 % (0-9); NEUT % 74 % (31-73); PLATELET COUNT 748 x10^3/uL (140-400); RED BLOOD COUNT 4.84 x10^6/uL (3.50-5.40); WHITE BLOOD COUNT 9.6 x10^3/uL (4.0-11.0)
[2017-05-26 18:23] LABS: BILIRUBIN,URINE NEGATIVE (NEG); GLUCOSE,URINE NEGATIVE (NEG); NITRITE,URINE NEGATIVE (NEG); PH,URINE 5.5; PROTEIN,URINE NEGATIVE (NEG-TRACE)
[2017-05-26 18:30] LABS: BACTERIA,URINE 0 /HPF (0-FEW); RBC,URINE 0 /HPF (0-2); SQUAMOUS EPITHELIAL CELL,UR MOD /LPF
[2017-05-26 18:40] LABS: CALCIUM 8.3 mg/dL (8.5-10.1); CREATININE 0.9 mg/dL (0.6-1.0); GFR 60.9; POTASSIUM 3.9 mmol/L (3.5-5.1)
[2017-05-26 18:46] LABS: ALBUMIN 3.2 g/dL (3.4-5.0); ALBUMIN/GLOBULIN RATIO 0.9 (1.0-1.7); MAGNESIUM 1.3 mg/dL (1.8-2.4); TOTAL BILIRUBIN 0.7 mg/dL (0.2-1.0); TOTAL PROTEIN 6.7 g/dL (6.4-8.2)
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
--- NOTE | 2017-05-27 06:33 | EKG ---
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
--- NOTE | 2017-05-27 07:25 | RAD ---
Indication: Altered mental status. Time of exam 1900 hours. Comparison is made with prior chest from 04/22/2017. The heart size is stable. There is a calcified granuloma in the right lower lobe, stable. The lungs are clear of acute infiltrates. No effusion or pneumothorax is seen. Impression: No acute cardiopulmonary process is detected.
== END 2017-05-26 21:41 | disposition home or self-care (01) ==
LOC: ER 17:37
DX: G30.9 Alzheimer's disease, unspecified (principal); F02.80 Dementia in other diseases classified elsewhere, unspecified severity, without behavioral disturbance, psychotic disturbance, mood disturbance, and anxiety; E11.9 Type 2 diabetes mellitus without complications; Z88.0 Allergy status to penicillin; I25.2 Old myocardial infarction; Z90.710 Acquired absence of both cervix and uterus; Z90.49 Acquired absence of other specified parts of digestive tract
CPT/HCPCS: 36415; 71010; 80053; 81001; 83735; 85027; 87086; 93005; 99285-25

== ENCOUNTER 2017-07-05 18:58 | Emergency (ER) | payer MEDICARE, OTHER ==
[~2017-07-05] VITALS: Ht 162.6 cm; Wt 65.8 kg
[2017-07-05] MEDS ORDERED: IV NORMAL SALINE 1000ML BAG 1,000 ML IV ONE (19:15)
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
[2017-07-05 19:38] LABS: BILIRUBIN,URINE NEGATIVE (NEG); GLUCOSE,URINE 250 mg/dL (NEG); NITRITE,URINE NEGATIVE (NEG); PH,URINE 5.5; PROTEIN,URINE NEGATIVE (NEG-TRACE); UROBILINOGEN,URINE 0.2 mg/dL (0.2 mg/dL)
[2017-07-05 19:47] LABS: BACTERIA,URINE MOD /HPF (0-FEW); RBC,URINE 0 /HPF (0-2); SQUAMOUS EPITHELIAL CELL,UR MOD /LPF
[2017-07-05 19:57] LABS: BASO # 0.2 x10^3/uL (0.0-0.2); BASO % 1 % (0-3); EOS % 1 % (0-3); HEMATOCRIT 43.6 % (36.0-47.0); HEMOGLOBIN 13.7 g/dL (12.0-15.5); LYMPH # 1.7 x10^3/uL (1.0-4.8); LYMPH % 14 % (24-48); MEAN CORPUSCULAR HEMOGLOBIN 28 pg (25-35); MEAN CORPUSCULAR HGB CONC 31 g/dL (31-37); MEAN CORPUSCULAR VOLUME 90 fL (79-100); MONO % 7 % (0-9); NEUT % 77 % (31-73); PLATELET COUNT 703 x10^3/uL (140-400); RED BLOOD COUNT 4.85 x10^6/uL (3.50-5.40); RED CELL DISTRIBUTION WIDTH 18.3 % (11.5-14.5); WHITE BLOOD COUNT 12.5 x10^3/uL (4.0-11.0)
[2017-07-05 20:08] LABS: CALCIUM 8.9 mg/dL (8.5-10.1); CREATININE 0.8 mg/dL (0.6-1.0); GFR 69.7; POTASSIUM 4.1 mmol/L (3.5-5.1)
[2017-07-05 20:13] LABS: ALBUMIN 3.3 g/dL (3.4-5.0); DIRECT BILIRUBIN 0.1 mg/dL (0.0-0.2); MAGNESIUM 1.4 mg/dL (1.8-2.4); TOTAL BILIRUBIN 0.6 mg/dL (0.2-1.0); TOTAL PROTEIN 6.8 g/dL (6.4-8.2)
[2017-07-05 22:30] VITALS: BP 150/70
--- NOTE | 2017-07-06 05:48 | EKG ---
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
--- NOTE | 2017-07-06 08:31 | RAD ---
Indication mental status change. Hypertension. Diabetes. Protocol study. Suspect CVA. A single view of the chest was obtained and is compared to an examination 05/26/2017. The heart and pulmonary vessels appear normal. The lungs are clear of acute infiltrates. Significant pleural fluid is not seen and there is no pneumothorax. Calcified granuloma in the right lung is noted. Overall there has not been a significant change in the appearance of the chest compared to the previous exam. IMPRESSION: No acute or focal process. No significant change
== END 2017-07-06 00:53 | disposition home or self-care (01) ==
LOC: ER 18:58
DX: F91.2 Conduct disorder, adolescent-onset type (principal); R21 Rash and other nonspecific skin eruption; E11.9 Type 2 diabetes mellitus without complications; I25.2 Old myocardial infarction; Z90.49 Acquired absence of other specified parts of digestive tract; Z88.0 Allergy status to penicillin; Z90.710 Acquired absence of both cervix and uterus
CPT/HCPCS: 36415; 71010; 80048; 80076; 81001; 82550; 83735; 83880; 84484; 85027; 93005; 96360; 96361; 99285; J7030

== ENCOUNTER 2017-07-25 12:51 | Emergency (ER) | payer MEDICARE, OTHER ==
[2017-07-25] MEDS ORDERED: IV NORMAL SALINE 1000ML BAG 1,000 ML IV SCH (14:00)
--- NOTE | 2017-07-25 14:09 | PHYS DOC ---
Past Medical History Past Medical History: Bipolar, Cancer, Dementia, Diabetes-Type II, High Cholesterol, Hypertension, Hypothyroid, [place], UTI, Other Additional Past Medical Histor: AORTIC STENOSIS Past Surgical History: Cholecystectomy, Hysterectomy Alcohol Use: None Drug Use: None Adult General Chief Complaint Chief Complaint: DIZZY/LIGHT HEADED HPI HPI Patient is a 76 year old female who presents to the emergency department for evaluation of dizziness. The patient was brought to the emergency department from her [facility] facility after staff noted that she was having difficulty with dizziness mostly when attempting to stand. The patient has history of dementia and is a poor historian. Patient denies any complaints at this time. Patient has had no fevers. EMS reported that they measured low blood pressures in route from laying to sitting. Patient denies any chest pain or abdominal pain currently. Review of Systems Review of Systems Constitutional: Denies fever or chills [] Eyes: Denies change in visual acuity, redness, or eye pain [] HENT: Denies nasal congestion or sore throat [] Respiratory: Denies cough or shortness of breath [] Cardiovascular: Denies chest pain or edema [] GI: Denies abdominal pain, nausea, vomiting, bloody stools or diarrhea [] : Denies dysuria or hematuria [] Musculoskeletal: Denies back pain or joint pain [] Integument: Denies rash or skin lesions [] Neurologic: Denies headache, focal weakness or sensory changes [] Current Medications Current Medications Current Medications Medications (Trade) Dose Ordered Sig/Nuria Start Time Stop Time Status Last Admin Dose Admin Sodium Chloride 1,000 ml @ 1,000 mls/hr Q1H 07/25/17 14:00 07/25/17 14:59 07/25/17 14:23 1,000 MLS/HR Allergies Allergies Allergies Coded Allergies Type Severity Reaction Last Updated Verified Penicillins Allergy Intermediate 04/23/17 Yes Physical Exam Physical Exam Constitutional: Alert, afebrile, no acute distress. [] HENT: Normocephalic, atraumatic, bilateral external ears normal, oropharynx moist, no oral exudates, nose normal. [] Eyes: PERRLA, EOMI, conjunctiva normal, no discharge. [] Neck: Normal range of motion, no tenderness, supple, no stridor. [] Cardiovascular:Heart rate regular rhythm, no murmur [] Lungs & Thorax: Bilateral breath sounds clear to auscultation [] Abdomen: Bowel sounds normal, soft, no tenderness, no masses, no pulsatile masses. [] Skin: Warm, dry, no erythema, candidal rash present on bilateral anterior thighs. [] Back: No tenderness, no CVA tenderness. [] Extremities: No tenderness, no cyanosis, no clubbing, ROM intact, no edema. [] Neurologic: Alert, oriented to self only, normal motor function, normal sensory function, no focal deficits noted. [] Current Patient Data Vital Signs Vital Signs Date Time Temp Pulse Resp B/P (MAP) Pulse Ox O2 Delivery O2 Flow Rate FiO2 07/25/17 13:01 97.8 62 18 131/60 (83) 97 Room Air 97.8 Lab Values Laboratory Tests Test 07/25/17 14:00 07/25/17 14:30 Urine Collection Type U cath Urine Color Yellow Urine Clarity Clear Urine pH 6.0 Urine Specific [place] 1.020 Urine Protein Negative mg/dL (NEG-TRACE) Urine Glucose (UA) >=1000 mg/dL (NEG) Urine Ketones (Stick) Negative mg/dL (NEG) Urine Blood Negative (NEG) Urine Nitrite Negative (NEG) Urine Bilirubin Small (NEG) Urine Urobilinogen Dipstick 1.0 mg/dL (0.2 mg/dL) Urine Leukocyte Esterase Small (NEG) Urine RBC Occ /HPF (0-2) Urine WBC 1-4 /HPF (0-4) Urine Squamous Epithelial Cells Few /LPF Urine Transitional Epithelial Cells Few /LPF Urine Bacteria 0 /HPF (0-FEW) Urine Hyaline Casts Moderate /HPF Urine Mucus Mod /LPF White Blood Count 10.2 x10^3/uL (4.0-11.0) Red Blood Count 4.38 x10^6/uL (3.50-5.40) Hemoglobin 12.8 g/dL (12.0-15.5) Hematocrit 39.1 % (36.0-47.0) Mean Corpuscular Volume 90 fL (79-100) Mean Corpuscular Hemoglobin 29 pg (25-35) Mean Corpuscular Hemoglobin Concent 33 g/dL (31-37) Red Cell Distribution Width 19.6 % (11.5-14.5) H Platelet Count 769 x10^3/uL (140-400) H Neutrophils (%) (Auto) 78 % (31-73) H Lymphocytes (%) (Auto) 13 % (24-48) L Monocytes (%) (Auto) 7 % (0-9) Eosinophils (%) (Auto) 1 % (0-3) Basophils (%) (Auto) 1 % (0-3) Neutrophils # (Auto) 8.0 x10^3uL (1.8-7.7) H Lymphocytes # (Auto) 1.3 x10^3/uL (1.0-4.8) Monocytes # (Auto) 0.7 x10^3/uL (0.0-1.1) Eosinophils # (Auto) 0.1 x10^3/uL (0.0-0.7) Basophils # (Auto) 0.1 x10^3/uL (0.0-0.2) Sodium Level 132 mmol/L (136-145) L Potassium Level 4.2 mmol/L (3.5-5.1) Chloride Level 96 mmol/L (98-107) L Carbon Dioxide Level 29 mmol/L (21-32) Anion Gap 7 (6-14) Blood Urea Nitrogen 13 mg/dL (7-20) Creatinine 0.9 mg/dL (0.6-1.0) Estimated GFR (Cockcroft-Gault) 60.9 BUN/Creatinine Ratio 14 (6-20) Glucose Level 164 mg/dL (70-99) H Calcium Level 8.3 mg/dL (8.5-10.1) L Total Bilirubin Pending Aspartate Amino Transferase (AST) Pending Alanine Aminotransferase (ALT) Pending Alkaline Phosphatase Pending Total Protein Pending Albumin Pending Albumin/Globulin Ratio Pending Lipase Pending Laboratory Tests 07/25/17 14:30 Laboratory Tests 07/25/17 14:30 EKG EKG Interpreted by me: Heart rate 65, sinus rhythm, normal intervals, normal axis, no acute ST/T-wave abnormalities present [] Radiology/Procedures Radiology/Procedures Not performed [] Course & Med Decision Making Course & Med Decision Making Pertinent Labs and Imaging studies reviewed. (See chart for details) Patient's orthostatic vital signs were reviewed and were negative. Patient denied any lightheadedness and was able to stand with steady weightbearing during orthostatic vitals. Patient's lab work and urinalysis did not show significant signs of acute pathology. The patient was given IV fluids in the emergency department. The patient is stable for transfer back to her correction for continued care. Advise follow-up with primary doctor in 2-3 days and return to emergency department for any worsening symptoms. Dragon Disclaimer Dragon Disclaimer This electronic medical record was generated, in whole or in part, using a voice recognition dictation system. Departure Departure Impression: Primary Impression: Lightheadedness Additional Impression: Dementia Disposition: 01 HOME, SELF-CARE Condition: STABLE Referrals: UNKNOWN PCP NAME (PCP) Patient Instructions: Dehydration, Elderly Additional Instructions: Follow-up with your primary doctor in 2-3 days for reevaluation. Return to emergency department for any worsening symptoms. Problem Qualifiers Additional Impression: Dementia Dementia type: unspecified type Dementia behavioral disturbance: without behavioral disturbance Qualified Codes: F03.90 - Unspecified dementia without behavioral disturbance ANGI RAY MD Jul 25, 2017 14:09
[2017-07-25 14:11] LABS: BILIRUBIN,URINE SMALL (NEG); GLUCOSE,URINE >=1000 mg/dL (NEG); NITRITE,URINE NEGATIVE (NEG); PROTEIN,URINE NEGATIVE (NEG-TRACE)
[2017-07-25 14:24] LABS: BACTERIA,URINE 0 /HPF (0-FEW); RBC,URINE OCC /HPF (0-2); SQUAMOUS EPITHELIAL CELL,UR FEW /LPF
[2017-07-25 14:41] LABS: BASO # 0.1 x10^3/uL (0.0-0.2); BASO % 1 % (0-3); EOS % 1 % (0-3); HEMATOCRIT 39.1 % (36.0-47.0); HEMOGLOBIN 12.8 g/dL (12.0-15.5); LYMPH # 1.3 x10^3/uL (1.0-4.8); LYMPH % 13 % (24-48); MEAN CORPUSCULAR HEMOGLOBIN 29 pg (25-35); MEAN CORPUSCULAR HGB CONC 33 g/dL (31-37); MEAN CORPUSCULAR VOLUME 90 fL (79-100); MONO % 7 % (0-9); NEUT % 78 % (31-73); PLATELET COUNT 769 x10^3/uL (140-400); RED BLOOD COUNT 4.38 x10^6/uL (3.50-5.40); RED CELL DISTRIBUTION WIDTH 19.6 % (11.5-14.5); WHITE BLOOD COUNT 10.2 x10^3/uL (4.0-11.0)
[2017-07-25 14:54] LABS: CALCIUM 8.3 mg/dL (8.5-10.1); CREATININE 0.9 mg/dL (0.6-1.0); GFR 60.9; POTASSIUM 4.2 mmol/L (3.5-5.1)
[2017-07-25 15:00] VITALS: BP 151/71
[2017-07-25 15:00] LABS: ALBUMIN/GLOBULIN RATIO 1.1 (1.0-1.7); TOTAL BILIRUBIN 0.7 mg/dL (0.2-1.0); TOTAL PROTEIN 5.8 g/dL (6.4-8.2)
--- NOTE | 2017-07-26 11:29 | EKG ---
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
== END 2017-07-25 18:12 | disposition home or self-care (01) ==
LOC: ER 12:51
DX: R42 Dizziness and giddiness (principal); F03.90 Unspecified dementia, unspecified severity, without behavioral disturbance, psychotic disturbance, mood disturbance, and anxiety; E11.9 Type 2 diabetes mellitus without complications; E03.9 Hypothyroidism, unspecified; I10 Essential (primary) hypertension; E78.00 Pure hypercholesterolemia, unspecified; F31.9 Bipolar disorder, unspecified; I25.2 Old myocardial infarction; Z87.440 Personal history of urinary (tract) infections; Z90.49 Acquired absence of other specified parts of digestive tract; Z90.710 Acquired absence of both cervix and uterus; Z88.0 Allergy status to penicillin
CPT/HCPCS: 36415; 80053; 81001; 83690; 85025; 87086; 93005; 96360; 99285; J7030